=== PATIENT | male | born 1955 | race Caucasian/White ===

== ENCOUNTER 2019-08-30 14:00 | Inpatient (IN) | payer OTHER, SELFPAY ==
[2019-08-30] VITALS (9 sets, daily range): BP systolic 103–162; BP diastolic 53–105; PULSE 80–97; RESP 13–22; TEMP 36.6–36.9; O2SAT 95–100; BMI 22.9; BMI 19.7
--- NOTE | 2019-08-30 14:15 | DI.RAD.S_ITS ---
PROCEDURE: XR CHEST 1V INDICATIONS: chest pain TECHNIQUE: One view of the chest was acquired. COMPARISON: [facility], CR, XR CHEST 1 VIEW, 07/22/2018, 8:15. [facility], CR, CHEST 1 VIEW, 07/26/2009, 12:05. FINDINGS: Surgical changes and devices: None. Lungs and pleura: Lungs are clear. No pleural effusions or pneumothorax. Mediastinum: Mediastinal contours appear normal. Heart size is normal. Bones and chest wall: No suspicious bony lesions. Overlying soft tissues appear unremarkable. IMPRESSION: 1. No acute cardiopulmonary disease. Dictated by: Hugo Morocho M.D. on 08/30/2019 at 13:56 Approved by: Hugo Morocho M.D. on 08/30/2019 at 13:57
--- NOTE | 2019-08-30 14:17 | ED.GENADULT ---
HPI - General Adult General Chief complaint: Diabetic Problem Stated complaint: High glucose Time Seen by Provider: 08/30/19 14:16 History of Present Illness HPI narrative: 64-year-old noncompliant type 2 diabetic who lives with his brother presents with at least 3 days of vomiting diarrhea, fevers, poor oral intake, increasing confusion over the last 24 hours and global weakness today. Most of the history is obtained from the brothers is the patient is significantly confused and not fully participating in discussion or exam. Is reportedly supposed to be on insulin but has not had any insulin in the house for a number of months. It is unclear that he is taking any of his medications are exactly what those medications are. Brother's report that he has not had a stroke or cardiovascular event. No and else in the family is having issues with vomiting or diarrhea at this time. He has a history of chronic abdominal pain apparently is being worked up for mesenteric ischemia Rather is reports significant weight loss, and a 20 lb range, over the last weeks. Related Data Allergies Allergy/AdvReac Type Severity Reaction Status Date / Time carrot Allergy Severe ANAPHYLAXIS Verified 08/30/19 14:15 Review of Systems Review of Systems ROS Unobtainable: All systems reviewed & are unremarkable except as noted in HPI and below Patient History Surgical History Status post endoscopic retrograde cholangiopancreatography Family History Brother Heart disease Father Heart disease Mother Diabetes mellitus Social History Smoking Status: Current every day smoker Exam Narrative Exam Narrative: General: Frail, cachectic, confused and acutely ill-appearing gentleman in acute distress. unableble to give a complete and coherent history. HEENT: Very dry mucous membranes, normal sclera with reactive pupils, Neck: No JVD, supple Respiratory: Lungs are clear to auscultation, no wheezing no rales no rhonchi. Full and symmetrical air movemen. Is protecting his airway adequately at this time Cardiac: Tachycardia with regular rhythm, no murmurs no bruits Abdomen: Scaphoid with severe abdominal pain to minimal palpation. Pain appears to be diffuse with developing rebound. No flank pain Skin: Warm and flushed, no rashes. No obvious breakdown or signs of cellulitis Neurologic: Globally weak, confused to person time and place, no obvious asymmetries or abnormalities Extremities: No trauma, decreased perfusion with significant lower extremity nail dystrophy Psych: Confused, tries to respond to questions and is capable of moaning only Initial Vital Signs Initial Vital Signs: Vital Signs Temperature 98.5 F 08/30/19 14:02 Pulse Rate 97 H 08/30/19 14:02 Respiratory Rate 17 08/30/19 14:02 Blood Pressure 152/78 H 08/30/19 14:02 Pulse Oximetry 97 08/30/19 14:02 Course Course Course Narrative: Acutely ill type 2 diabetic poor control nausea vomiting diarrhea for at least 3 days severe abdominal pain clear dehydration low-grade fever altered mental status. Concern for his DKA as well as developing sepsis. He has had chronic severe abdominal pain DKA is certainly associated with abdominal pain however with the recent diarrhea and his presumed risk for mesenteric ischemia I am concerned about his bowel. Pending renal function will anticipate CT abdomen pelvis with contrast. Will begin fluid hydration blood work and additional studies. Orders Ordered: ED Orders 08/30/19 13:45 Complete Blood Count AUTO DIFF Stat Comprehensive Metabolic Panel Stat Lipase Stat Partial Thromboplastin Time Stat Prothrombin Time INR Stat Troponin & CK Cardiac Panel Stat 08/30/19 14:15 XR chest 1V Stat EKG-12 Lead Stat 08/30/19 14:22 Ketones (Beta-Hydroxybutyrate) Stat Procalcitonin Stat 08/30/19 14:38 Venous Blood Gas Stat 08/30/19 15:02 Blood Culture Stat Lactate (Lactic Acid) Stat 08/30/19 15:04 Urine Microscopic Stat 08/30/19 15:11 Arterial Blood Gas Stat 08/30/19 15:40 GI Panel (Film Array) Stat Sodium Chloride (Normal Saline 0.9%) 2,000 mls @ 1,000 mls/hr IV BOLUS ONE Stop: 08/30/19 16:54 Last Infusion: 08/30/19 15:27 Dose: 0 mls/hr Documented by: Admin: 08/30/19 14:56 Dose: 1,000 mls/hr Documented by: MEISENB INSULIN DRIP PREMIX (Myxredlin Drip Premix) 100 unit in 100 mls @ 6 mls/hr IV TITRATE CONRAD; Protocol Last Admin: 08/30/19 15:50 Dose: 6 mls/hr Documented by: Sodium Chloride (Normal Saline 0.9%) 1,000 mls @ 500 mls/hr IV CONT CONRAD Last Admin: 08/30/19 15:34 Dose: 500 mls/hr Documented by: DOMINGOSENSujit Discontinued Medications Sodium Chloride (Normal Saline 0.9%) 500 mls @ 2,000 mls/hr IV BOLUS ONE Stop: 08/30/19 14:48 Last Admin: 08/30/19 14:55 Dose: Not Given Documented by: YRIS Reevaluation(s) Reevaluation #1: Labs reviewed. Patient has a blood glucose of 1195 ABG of 7.37 with a CO2 of 48 and O2 of 81 and a bicarb of 28. Positive serum ketones. Findings are milk most consistent with DKA with significant hyperglycemia and delirium associated with significant dehydration. At this point he is not evidencing any renal failure. Will hold off on an abdominal CT at this time and assume that much of his abdominal pain is related to his DKA. If he continues to have severe abdominal pain or develops signs of abdominal infection will defer imaging decision-making to the hospitalist. He has gotten 2 L of fluid will continue at 200 cc an hour in begin an insulin drip with anticipation of admission to the ICU for management of his DKA with acute delirium Time: 15:24 Reevaluation #2: Care is reviewed with Dr. Nathan. She will be the admitting physician. Shared concerns with CT scan she will further evaluate and decide if she would like to have this ordered or not. Patient's brothers are updated. Questions are answered Time: 15:52 Vital Signs Vital signs: Vital Signs - 8 hr 08/30/19 14:02 08/30/19 14:44 08/30/19 15:31 Temperature 98.5 F Pulse Rate 97 H 93 H 92 H Respiratory Rate 17 16 14 Blood Pressure 152/78 H Blood Pressure [Right Arm] 139/72 151/71 H Pulse Oximetry 97 96 95 Medical Decision Making Medical Records Medical records reviewed: Yes I reviewed the patient's medical records. Lab Data Lab results reviewed: Yes I reviewed the patient's lab results. Result diagrams: 08/30/19 13:45 08/30/19 13:45 Labs: Lab Results 12/08/30/19 08/30/19 Range/Units 13:45 13:45 13:45 WBC 8.1 (4.5-11.0) X10^3/uL RBC 5.12 (4.5-5.9) X10^6/uL Hgb 17.8 H (13.5-17.5) g/dL Hct 53.5 H (41-53) % MCV 104.6 H (80-100) fL MCH 34.9 H (26-34) PG MCHC 33.4 (30-36) % RDW 14.0 (11.6-14.8) % Plt Count 197 (150-400) X10^3/uL Neut % (Auto) 80.8 H (50-75) % Lymph % (Auto) 12.1 L (25-40) % [place] % (Auto) 7.0 (3-14) % Eos % (Auto) 0.0 L (2-4) % Baso % (Auto) 0.1 (0-2) % Neut # (Auto) 6500 (7517-0828) /uL Lymph # (Auto) 1000 L (1536-8256) /uL [place] # (Auto) 600 (0-900) /uL Eos # (Auto) 0 (0-450) /uL Baso # (Auto) 0 (0-100) /uL PT 10.8 (10.1-12.7) SECONDS INR 0.9 (0.9-1.3) APTT 25 L (26.4-36.2) SECONDS ABG pH (7.35-7.45) ABG pCO2 (35-45) mmHg ABG pO2 (80-100) mmHg ABG HCO3 (22-26) mmol/L ABG Total CO2 (21-31) mmol/L ABG O2 Saturation (95-100) % ABG Base Excess (-2-2) mmol/L FiO2 Sodium 146 H (137-145) mmol/L Potassium 5.1 (3.4-5.1) mmol/L Chloride 103 (98-107) mmol/L Carbon Dioxide 28 (22-32) mmol/L BUN 53 H (9-20) mg/dL Creatinine 0.90 (0.66-1.25) mg/dL Estimated GFR > 60.0 (>60) mL/min BUN/Creatinine Ratio 58.9 H (6-22) Glucose 1195 H* (80-110) mg/dL Lactate (0.7-2.1) mmol/L Calcium 10.5 H (8.4-10.2) mg/dL Total Bilirubin 0.7 (0.2-1.3) mg/dL AST 20 (17-59) IU/L ALT 21 (<50) IU/L Alkaline Phosphatase 159 H (38-126) U/L Total Creatine Kinase 55 (55-170) U/L CK-MB (CK-2) TNP CK-MB (CK-2) Rel Index TNP Troponin I < 0.012 (0.01-0.034) ng/mL Total Protein 8.1 (6.3-8.2) g/dL Albumin 4.7 (3.5-5.0) g/dL Globulin 3.4 (1.7-4.1) g/dL Albumin/Globulin Ratio 1.4 (1.0-2.8) Lipase 128 (23-300) U/L Procalcitonin (<0.5) ng/mL Ketones (<0.27) mmol/L 08/30/19 08/30/19 08/30/19 Range/Units 14:22 14:22 15:02 WBC (4.5-11.0) X10^3/uL RBC (4.5-5.9) X10^6/uL Hgb (13.5-17.5) g/dL Hct (41-53) % MCV (80-100) fL MCH (26-34) PG MCHC (30-36) % RDW (11.6-14.8) % Plt Count (150-400) X10^3/uL Neut % (Auto) (50-75) % Lymph % (Auto) (25-40) % [place] % (Auto) (3-14) % Eos % (Auto) (2-4) % Baso % (Auto) (0-2) % Neut # (Auto) (4671-4248) /uL Lymph # (Auto) (0118-0044) /uL [place] # (Auto) (0-900) /uL Eos # (Auto) (0-450) /uL Baso # (Auto) (0-100) /uL PT (10.1-12.7) SECONDS INR (0.9-1.3) APTT (26.4-36.2) SECONDS ABG pH (7.35-7.45) ABG pCO2 (35-45) mmHg ABG pO2 (80-100) mmHg ABG HCO3 (22-26) mmol/L ABG Total CO2 (21-31) mmol/L ABG O2 Saturation (95-100) % ABG Base Excess (-2-2) mmol/L FiO2 Sodium (137-145) mmol/L Potassium (3.4-5.1) mmol/L Chloride (98-107) mmol/L Carbon Dioxide (22-32) mmol/L BUN (9-20) mg/dL Creatinine (0.66-1.25) mg/dL Estimated GFR (>60) mL/min BUN/Creatinine Ratio (6-22) Glucose (80-110) mg/dL Lactate 1.7 (0.7-2.1) mmol/L Calcium (8.4-10.2) mg/dL Total Bilirubin (0.2-1.3) mg/dL AST (17-59) IU/L ALT (<50) IU/L Alkaline Phosphatase (38-126) U/L Total Creatine Kinase (55-170) U/L CK-MB (CK-2) CK-MB (CK-2) Rel Index Troponin I (0.01-0.034) ng/mL Total Protein (6.3-8.2) g/dL Albumin (3.5-5.0) g/dL Globulin (1.7-4.1) g/dL Albumin/Globulin Ratio (1.0-2.8) Lipase (23-300) U/L Procalcitonin 0.06 (<0.5) ng/mL Ketones 1.43 H (<0.27) mmol/L /14/19 Range/Units 15:11 WBC (4.5-11.0) X10^3/uL RBC (4.5-5.9) X10^6/uL Hgb (13.5-17.5) g/dL Hct (41-53) % MCV (80-100) fL MCH (26-34) PG MCHC (30-36) % RDW (11.6-14.8) % Plt Count (150-400) X10^3/uL Neut % (Auto) (50-75) % Lymph % (Auto) (25-40) % [place] % (Auto) (3-14) % Eos % (Auto) (2-4) % Baso % (Auto) (0-2) % Neut # (Auto) (0663-1309) /uL Lymph # (Auto) (9391-1622) /uL [place] # (Auto) (0-900) /uL Eos # (Auto) (0-450) /uL Baso # (Auto) (0-100) /uL PT (10.1-12.7) SECONDS INR (0.9-1.3) APTT (26.4-36.2) SECONDS ABG pH 7.37 (7.35-7.45) ABG pCO2 48.1 H (35-45) mmHg ABG pO2 81 (80-100) mmHg ABG HCO3 28 H (22-26) mmol/L ABG Total CO2 29 (21-31) mmol/L ABG O2 Saturation 95 (95-100) % ABG Base Excess 3.0 H (-2-2) mmol/L FiO2 0.21 Sodium (137-145) mmol/L Potassium (3.4-5.1) mmol/L Chloride (98-107) mmol/L Carbon Dioxide (22-32) mmol/L BUN (9-20) mg/dL Creatinine (0.66-1.25) mg/dL Estimated GFR (>60) mL/min BUN/Creatinine Ratio (6-22) Glucose (80-110) mg/dL Lactate (0.7-2.1) mmol/L Calcium (8.4-10.2) mg/dL Total Bilirubin (0.2-1.3) mg/dL AST (17-59) IU/L ALT (<50) IU/L Alkaline Phosphatase (38-126) U/L Total Creatine Kinase (55-170) U/L CK-MB (CK-2) CK-MB (CK-2) Rel Index Troponin I (0.01-0.034) ng/mL Total Protein (6.3-8.2) g/dL Albumin (3.5-5.0) g/dL Globulin (1.7-4.1) g/dL Albumin/Globulin Ratio (1.0-2.8) Lipase (23-300) U/L Procalcitonin (<0.5) ng/mL Ketones (<0.27) mmol/L Point of Care Testing Glucose POC 500 Urine Dip Bedside Urine Glucose 1000 mg/dl Bedside Urine Bilirubin - Negative Bedside Urine Ketone +/- 5 Urine Specific [place] 1.010 Bedside Urine Occult Blood - Negative Bedside Urine pH 6.0 Bedside Urine Protein - Negative Bedside Urine Urobilinogen - Negative Bedside Urine Nitrite - Negative Bedside Urine Leukocytes - Negative Esterase Point of care testing: Point of Care Testing Glucose POC 500 Urine Dip Bedside Urine Glucose 1000 mg/dl Bedside Urine Bilirubin - Negative Bedside Urine Ketone +/- 5 Urine Specific [place] 1.010 Bedside Urine Occult Blood - Negative Bedside Urine pH 6.0 Bedside Urine Protein - Negative Bedside Urine Urobilinogen - Negative Bedside Urine Nitrite - Negative Bedside Urine Leukocytes - Negative Esterase Imaging Data Chest x-ray: Radiologist's impression: IMPRESSION: 1. No acute cardiopulmonary disease. Dictated by: Hugo Morocho M.D. 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
[2019-08-30 14:27] LABS: INR 0.9 (0.9-1.3); Prothrombin Time 10.8 SECONDS (10.1-12.7)
--- NOTE | 2019-08-30 14:28 | PC.NURSE ---
2016, follows command, moving all ext well, c/o thirsty, and with generalized ache with movement. skin warm dry.
[2019-08-30 14:30] LABS: Add Manual Diff / Slide Review NO; Basophils Absolute Auto 0 /uL (0-100); Basophils Percent Auto 0.1 % (0-2); Eosinophils Absolute Auto 0 /uL (0-450); Hematocrit 53.5 % (41-53); Hemoglobin 17.8 g/dL (13.5-17.5); Lymphocytes Absolute Auto 1000 /uL (1100-4500); Lymphocytes Percent Auto 12.1 % (25-40); Mean Corpuscular HGB Conc 33.4 % (30-36); Mean Corpuscular Hemoglobin 34.9 PG (26-34); Mean Corpuscular Volume 104.6 fL (80-100); Monocytes Absolute Auto 600 /uL (0-900); Neutrophils Absolute Auto 6500 /uL (1500-7000); Neutrophils Percent Auto 80.8 % (50-75); PTT Partial Thromboplastin Tim 25 SECONDS (26.4-36.2); Platelet Count 197 X10^3/uL (150-400); Red Blood Cell Count 5.12 X10^6/uL (4.5-5.9); White Blood Cell Count 8.1 X10^3/uL (4.5-11.0)
[2019-08-30 14:34] LABS: Alanine Aminotransferase 21 IU/L (<50); Albumin 4.7 g/dL (3.5-5.0); Albumin Globulin Ratio 1.4 (1.0-2.8); Alkaline Phosphatase 159 U/L (38-126); Aspartate Aminotransferase 20 IU/L (17-59); BUN Creatinine Ratio 58.9 (6-22); Bilirubin Total 0.7 mg/dL (0.2-1.3); Blood Urea Nitrogen 53 mg/dL (9-20); Calcium 10.5 mg/dL (8.4-10.2); Carbon Dioxide 28 mmol/L (22-32); Chloride 103 mmol/L (98-107); Creatine Kinase 55 U/L (55-170); Estimated Glomerular Filt Rate > 60.0 mL/min (>60); Globulin 3.4 g/dL (1.7-4.1); HEMOLYSIS 34 (0-50); Lipase 128 U/L (23-300); Potassium 5.1 mmol/L (3.4-5.1); Sodium 146 mmol/L (137-145); Total Protein 8.1 g/dL (6.3-8.2)
[2019-08-30 14:45] LABS: Troponin I < 0.012 ng/mL (0.01-0.034)
[2019-08-30 14:48] LABS: Glucose 1195 mg/dL (80-110)
[2019-08-30] MEDS: SODIUM CHLORIDE 0.9% 2,000 ML 1000 ML IV (14:56)
[2019-08-30 15:15] LABS: Ketones (Beta-Hydroxybutyrate) 1.43 mmol/L (<0.27); Procalcitonin 0.06 ng/mL (<0.5)
[2019-08-30 15:25] LABS: Fractionated Inspired Oxygen 0.21; HCO3 ABG 28 mmol/L (22-26); Oxygen Saturation ABG 95 % (95-100); PCO2 ABG 48.1 mmHg (35-45); PO2 ABG 81 mmHg (80-100); TCO2 ABG 29 mmol/L (21-31); pH ABG 7.37 (7.35-7.45)
[2019-08-30 15:26] LABS: Lactate (Lactic Acid) 1.7 mmol/L (0.7-2.1)
[2019-08-30] MEDS: SODIUM CHLORIDE 0.9% 1,000 ML 500 ML IV (15:34)
[2019-08-30] MEDS: INSULIN DRIP PREMIX 100 UNIT/100 ML PLAST..BAG 6 UNIT IV (15:50)
[2019-08-30 16:04] LABS: Bacteria Urine None Seen; RBC Urine None Seen (0-5/HPF); WBC Urine None Seen (0-5/HPF)
--- NOTE | 2019-08-30 16:15 | PC.NURSE ---
cell phone with plugs, ortiz jacket, glass,watch,pair of slipper, red short,whirt and pants.
[2019-08-30 16:27] LABS: Culture Indicated Urine Cult Not Indicated
--- NOTE | 2019-08-30 17:44 | P.HP_ITS ---
History of Present Illness History of Present Illness Date Patient Seen: 08/30/19 Chief complaint: High glucose Narrative: The patient is a 64-year-old man with a history of type 2 diabetes, chronic abdominal pain, diabetic polyneuropathy who was brought into the hospital for nausea vomiting diarrhea and frequent falls. The patient is unable to provide any history. History is obtained from the emergency department and from the patient's daughter. Apparently he is a type 2 diabetic but has recently been prescribed insulin. He does not take his insulin and has chronically elevated blood sugars. The patient spoke to his daughter 2 days ago and was not quite feeling well. Brother states that today he was confused. He attempted to walk multiple times and each time he tried to walk he would fall down. The patient had reported diarrhea. It's unclear how long he has had diarrhea. He also has chronic abdominal pain. According to the daughter he is on carbamazepine and gabapentin for his abdominal pain. It's felt that this is likely related to prior infection with shingles. There is also report that the patient has been worked up for mesenteric ischemia. According to the daughter the patient has lost 60 lb over the past 2 years. He is unable to give us any history. He is slow to answer or respond to questions. He states over and over that his mouth is dry. He denies shortness of breath, he denies any pain in his chest, he does report diarrhea, he reports abdominal pain which has been present for ?a long time he denies any dysuria hematuria or pyuria. He has had no fever chills. Further review of systems is essentially unobtainable patient was evaluated in the emergency room and found to have a blood sugar of over 1000. Patient is admitted to the hospital for hyper osmolar state. Patient History Medical History (Updated 08/30/19 @ 17:47 by Oksana Nathan MD) Diabetes mellitus with ketoacidosis (Acute) Surgical History Status post endoscopic retrograde cholangiopancreatography Family & Social History Family History Brother Heart disease Father Heart disease Mother Diabetes mellitus Social History: household members family Prior Living Arrangements House Safety & Behavioral: Feels Safe in Current Yes Environment Been Physically Hurt or No Threatened By a Person Suicidal Ideation Description None Tobacco & Substance use: Smoking Status Current every day smoker Smoking packs per day 1 alcohol intake never Substance Use Type does not use Meds Home Medications and Allergies Home Medications Medication Instructions Recorded Confirmed Type carbamazepine 300 mg PO BID 08/30/19 08/30/19 History gabapentin 600 mg PO TID 08/30/19 08/30/19 History hydrocodone-acetaminophen 08/30/19 History lidocaine 08/30/19 History swabwspe-poa-WZ-lycopen-lutein 1 tab PO DAILY 08/30/19 08/30/19 History [Centrum Silver] naproxen sodium [Aleve] 400 mg PO Q4-6H PRN 08/30/19 08/30/19 History pantoprazole 40 mg PO DAILY 08/30/19 08/30/19 History Allergies Allergy/AdvReac Type Severity Reaction Status Date / Time carrot Allergy Severe ANAPHYLAXIS Verified 08/30/19 14:15 Review of Systems Review of Systems ROS Unobtainable: All systems reviewed & are unremarkable except as noted in HPI and below Exam Vital Signs (past 8 hours): - 08/30/19 14:02 08/30/19 14:44 08/30/19 15:31 Temperature 98.5 F Pulse Rate 97 H 93 H 92 H Respiratory Rate 17 16 14 Blood Pressure 152/78 H Blood Pressure [Right Arm] 139/72 151/71 H Pulse Oximetry 97 96 95 08/30/19 16:30 Temperature 98.1 F Pulse Rate 93 H Respiratory Rate 13 Blood Pressure 162/77 H Blood Pressure [Right Arm] Pulse Oximetry 95 Oxygen Delivery Method Room Air Oxygen Flow Rate 0 Narrative Exam Narrative: Ill-appearing male lying in bed HEENT: Bitemporal wasting, oropharynx reveals very dry mucous membranes, neck is supple, there is no adenopathy or thyromegaly, sclerae are anicteric Lungs: Clear to auscultation Cardiac exam: Tachycardic regular rate and rhythm normal S1-S2 Abdomen: Scaphoid, soft, diffusely tender, no palpable masses, no rebound tenderness, no board-like rigidity, no hepatosplenomegaly noted Extremities: No edema right knee with a raised abrasion over the kneecap, no edema Neuro exam patient is awake, he does answer questions at times appropriately, he is able to move all extremities, his strength is symmetric and equal in the upper and lower extremities sensation is grossly intact, reflexes are equal, gait is not assessed Psychiatric exam patient feels to be withdrawn, depressed, slowly response, he has no hallucinations, no delusions Objective Labs Result Diagrams: 08/30/19 13:45 08/30/19 13:45 Labs: Laboratory Results - last 24 hr 08/30/19 08/30/19 08/30/19 13:45 13:45 13:45 WBC 8.1 RBC 5.12 Hgb 17.8 H Hct 53.5 H MCV 104.6 H MCH 34.9 H MCHC 33.4 RDW 14.0 Plt Count 197 Neut % (Auto) 80.8 H Lymph % (Auto) 12.1 L [place] % (Auto) 7.0 Eos % (Auto) 0.0 L Baso % (Auto) 0.1 Neut # (Auto) 6500 Lymph # (Auto) 1000 L [place] # (Auto) 600 Eos # (Auto) 0 Baso # (Auto) 0 PT 10.8 INR 0.9 APTT 25 L ABG pH ABG pCO2 ABG pO2 ABG HCO3 ABG Total CO2 ABG O2 Saturation ABG Base Excess FiO2 Sodium 146 H Potassium 5.1 Chloride 103 Carbon Dioxide 28 BUN 53 H Creatinine 0.90 Estimated GFR > 60.0 BUN/Creatinine Ratio 58.9 H Glucose 1195 H* Lactate Calcium 10.5 H Total Bilirubin 0.7 AST 20 ALT 21 Alkaline Phosphatase 159 H Total Creatine Kinase 55 CK-MB (CK-2) TNP CK-MB (CK-2) Rel Index TNP Troponin I < 0.012 Total Protein 8.1 Albumin 4.7 Globulin 3.4 Albumin/Globulin Ratio 1.4 Lipase 128 Procalcitonin Urine RBC Urine WBC Urine Bacteria Ur Culture Indicated? Ketones 08/30/19 08/30/19 08/30/19 14:22 14:22 15:02 WBC RBC Hgb Hct MCV MCH MCHC RDW Plt Count Neut % (Auto) Lymph % (Auto) [place] % (Auto) Eos % (Auto) Baso % (Auto) Neut # (Auto) Lymph # (Auto) [place] # (Auto) Eos # (Auto) Baso # (Auto) PT INR APTT ABG pH ABG pCO2 ABG pO2 ABG HCO3 ABG Total CO2 ABG O2 Saturation ABG Base Excess FiO2 Sodium Potassium Chloride Carbon Dioxide BUN Creatinine Estimated GFR BUN/Creatinine Ratio Glucose Lactate 1.7 Calcium Total Bilirubin AST ALT Alkaline Phosphatase Total Creatine Kinase CK-MB (CK-2) CK-MB (CK-2) Rel Index Troponin I Total Protein Albumin Globulin Albumin/Globulin Ratio Lipase Procalcitonin 0.06 Urine RBC Urine WBC Urine Bacteria Ur Culture Indicated? Ketones 1.43 H 08/30/19 08/30/19 15:11 16:02 WBC RBC Hgb Hct MCV MCH MCHC RDW Plt Count Neut % (Auto) Lymph % (Auto) [place] % (Auto) Eos % (Auto) Baso % (Auto) Neut # (Auto) Lymph # (Auto) [place] # (Auto) Eos # (Auto) Baso # (Auto) PT INR APTT ABG pH 7.37 ABG pCO2 48.1 H ABG pO2 81 ABG HCO3 28 H ABG Total CO2 29 ABG O2 Saturation 95 ABG Base Excess 3.0 H FiO2 0.21 Sodium Potassium Chloride Carbon Dioxide BUN Creatinine Estimated GFR BUN/Creatinine Ratio Glucose Lactate Calcium Total Bilirubin AST ALT Alkaline Phosphatase Total Creatine Kinase CK-MB (CK-2) CK-MB (CK-2) Rel Index Troponin I Total Protein Albumin Globulin Albumin/Globulin Ratio Lipase Procalcitonin Urine RBC None seen Urine WBC None seen Urine Bacteria None seen Ur Culture Indicated? Cult not indicated Ketones Assessment & Plan Assessment & Plan narrative: 1. 64-year-old male admitted to the hospital with diabetic hyperosmolar hyperglycemic state. Patient is not ketotic. He has no evidence of DKA. Patient is a type 2 diabetic who has not been taking insulin or any treatment for some time. He has severe dehydration. He has severe hyperglycemia. It is unclear whether the underlying etiology was his diarrhea or another clinical condition or just noncompliance with his treatment. At this time will proceed as follows -patient will continue on IV fluids -patient to continue on IV insulin -will obtain medical records and resume usual home insulin dosing once blood sugars have improved. -will continue to look for etiologies and precipitants of his hyperosmolar state -very concerning that the patient has been severely noncompliant with medic ations. It's unclear whether it is safe for him to return home independently. Will ask social work/case management to evaluate. Suspect the patient will need placement at a facility as he is non compliant with his medical regimen resulting in nearly catastrophic illness. -will obtain a glycohemoglobin, will obtain a fasting lipid profile, will continue IV hydration. 2. Chronic abdominal pain, question mesenteric ischemia which I doubt versus is diabetic neuropathy versus other. Once the patient's hyperglycemia has improved will resume his gabapentin and carbamazepine 3. Hypertension question new diagnosis, start the patient on an ZAN-inhibitor given his diabetes. 4. Severe dehydration, related to his hyperosmolar state, will continue aggressive IV hydration and follow labs and electrolytes closely Patient will be placed on DVT prophylaxis. He reports he is a full code. Will note that his record accordingly. Quality VTE Deep Vein Thrombosis/Pulmonary Embolism Present on Admission: No
[2019-08-30 18:15] LABS: Blood Urea Nitrogen 45 mg/dL (9-20); Calcium 9.7 mg/dL (8.4-10.2); Carbon Dioxide 26 mmol/L (22-32); Chloride 118 mmol/L (98-107); Estimated Glomerular Filt Rate > 60.0 mL/min (>60); Potassium 4.2 mmol/L (3.4-5.1); Sodium 157 mmol/L (137-145)
[2019-08-30 18:16] LABS: HEMOLYSIS 21 (0-50)
[2019-08-30 18:17] LABS: Glucose 656 mg/dL (80-110)
[2019-08-30 18:18] LABS: Hemoglobin A1C% w Est Avg Glu 12.4 % (4.0-6.0)
[2019-08-30] MEDS: SODIUM CHLORIDE 0.45% 1,000 ML 150 ML IV (18:51)
--- NOTE | 2019-08-30 19:07 | PC.NURSE ---
Addendum entered by Carmela Johnson R.N. 08/30/19 22:17: 2200 - BG 178, Hospitalist aware. Verbal order to titrate insulin gtt down to 4 units/hr. Pt's prior report of nausea following reposition and bed nagel use resolved with Zofran. Addendum entered by Carmela Johnson R.N. 08/30/19 20:13: 2000 - Pt near goal with BG, 272, a decrease of 89 from prior measure. Insulin gtt titrated to 5 units per hour. 0.45 NS infusing at 150cc/hr. Pt continues to be drowsy, c/o thirst and resistive to care. Bed alarm on. Original Note: 1900 - Pt repositioned. Void per urinal. Stool per bedpan, sample sent. Brief in place. Continues to be resistive to care. BG 361. SCD's in place. 1625 -Pt to room from ER. Transfer to bed via sliderboard. Resistive to care, assessment and repositioning. Pt is a poor historian. Family assist with some medical history. Pt with medications in his belongings, noted and sent home with family. Pt declines any valuables to be placed in safe. Oriented to room and routine. Bed alarm on.
[2019-08-30 19:54] LABS: Cholesterol 287 mg/dL (140-199); HDL Cholesterol 40 mg/dL (40-60)
[2019-08-30 20:23] LABS: Triglycerides 1828 mg/dL (35-150)
[2019-08-30 20:25] LABS: Adenovirus F 40/41 Not Detected (Not Detect); Astrovirus Not Detected (Not Detect); Campylobacter Not Detected (Not Detect); Clostridium difficile toxin AB Not Detected (Not Detect); Cryptosporidium Not Detected (Not Detect); Cyclospora cayetanensis Not Detected (Not Detect); Entamoeba histolytica Not Detected (Not Detect); Enteroaggregative E.coli Not Detected (Not Detect); Enteropathogenic E.coli Not Detected (Not Detect); Enterotoxigenic E.coli It/st Not Detected (Not Detect); Giardia lamblia Not Detected (Not Detect); Norovirus GI/GII Not Detected (Not Detect); Plesiomonsa shigelloides Not Detected (Not Detect); Rotavirus A Not Detected (Not Detect); Salmonella Not Detected (Not Detect); Sapovirus Not Detected (Not Detect); Shiga-like toxin-prod E.coli Not Detected (Not Detect); Shigella/Enteroinvasive E.coli Not Detected (Not Detect); Vibrio Not Detected (Not Detect); Vibrio cholerae Not Detected (Not Detect); Yersinia enterocolitica Not Detected (Not Detect)
[2019-08-30] MEDS: DEXTROSE 5%-0.45% NS 1,000 ML 150 ML IV (21:06)
[2019-08-30] MEDS: ONDANSETRON 4 MG/2 ML INJ IV (21:17)
[2019-08-30] MEDS: ATORVASTATIN 20 MG TABLET 40 MG PO (22:01)
[2019-08-30 23:29] LABS: BUN Creatinine Ratio 53.3 (6-22); Blood Urea Nitrogen 32 mg/dL (9-20); Carbon Dioxide 28 mmol/L (22-32); Chloride 117 mmol/L (98-107); Estimated Glomerular Filt Rate > 60.0 mL/min (>60); Glucose 167 mg/dL (80-110); HEMOLYSIS < 15 (0-50); Magnesium 2.8 mg/dL (1.6-2.3); Potassium 3.3 mmol/L (3.4-5.1); Sodium 149 mmol/L (137-145)
[2019-08-31] VITALS (11 sets, daily range): BP systolic 92–179; BP diastolic 45–86; PULSE 69–88; RESP 15–18; TEMP 36.7–37.3; O2SAT 93–98
[2019-08-31] MEDS: POTASSIUM CHLORIDE 20 MEQ in SODIUM CHLORIDE 0.9% 250 ML 130 ML IV (00:29)
[2019-08-31] MEDS: INSULIN ASPART 100 UNIT/ML INSULN PEN SUBCUT ×4 (02:15→20:59)
[2019-08-31 05:21] LABS: Add Manual Diff / Slide Review NO; Basophils Absolute Auto 0 /uL (0-100); Basophils Percent Auto 0.4 % (0-2); Eosinophils Absolute Auto 100 /uL (0-450); Eosinophils Percent Auto 1.1 % (2-4); Hematocrit 39.8 % (41-53); Hemoglobin 13.7 g/dL (13.5-17.5); Lymphocytes Absolute Auto 1800 /uL (1100-4500); Lymphocytes Percent Auto 21.3 % (25-40); Mean Corpuscular HGB Conc 34.5 % (30-36); Mean Corpuscular Hemoglobin 34.2 PG (26-34); Mean Corpuscular Volume 99.2 fL (80-100); Monocytes Absolute Auto 700 /uL (0-900); Monocytes Percent Auto 8.2 % (3-14); Neutrophils Absolute Auto 5900 /uL (1500-7000); Platelet Count 114 X10^3/uL (150-400); Red Blood Cell Count 4.01 X10^6/uL (4.5-5.9); White Blood Cell Count 8.6 X10^3/uL (4.5-11.0)
[2019-08-31 05:28] LABS: BUN Creatinine Ratio 46.7 (6-22); Blood Urea Nitrogen 28 mg/dL (9-20); Calcium 8.3 mg/dL (8.4-10.2); Carbon Dioxide 26 mmol/L (22-32); Chloride 117 mmol/L (98-107); Estimated Glomerular Filt Rate > 60.0 mL/min (>60); Glucose 364 mg/dL (80-110); HEMOLYSIS 18 (0-50); Potassium 3.9 mmol/L (3.4-5.1); Sodium 148 mmol/L (137-145)
--- NOTE | 2019-08-31 06:13 | PC.NURSE ---
Pt transferred from ICU at 0600; Pt had a large leroy-like brown stool on admission. Alert and oriented x3, however, it takes him a minute to figure out his answers. Clear Liquid diet, asking for water. B/L great toe nails blacked; calloused right knee
[2019-08-31] MEDS: METOCLOPRAMIDE 10 MG/2 ML INJ IV (08:11)
[2019-08-31] MEDS: FENOFIBRATE 145 MG TABLET PO (09:40)
[2019-08-31] MEDS: ENOXAPARIN 40 MG/0.4 ML SYRINGE SUBCUT (09:40)
[2019-08-31] MEDS: LISINOPRIL 10 MG TABLET PO (09:41)
[2019-08-31] MEDS: FISH OIL 1,000 MG CAPSULE 1000 MG PO (09:41)
[2019-08-31] MEDS: ACETAMINOPHEN 325 MG TABLET 650 MG PO ×2 (09:46→16:07)
[2019-08-31] MEDS: INSULIN GLARGINE 100 UNIT/ML 3ML PEN 15 UNIT SUBCUT (12:09)
--- NOTE | 2019-08-31 15:03 | P.PN_ITS ---
Subjective Subjective Date Patient Seen: 08/31/19 Interval history: The patient is a 64-year-old male who was admitted to the hospital for hyperglycemic hyperosmolar diabetic state yesterday. The patient is normally on 28 units of insulin +500 b.i.d. of metformin. He stop taking his insulin at home. It's unclear whether he was taking the metformin or not. Patient is somewhat withdrawn, mood is depressed, has no tearful episodes. His brothers are in the room and endorse at times the patient has been depressed. We discussed initiation of an antidepressant which he was amenable to do. Patient has been unsteady on his feet for quite some time. He is awaiting PT evaluation to determine if he is safe to return home or will need penitentiary for rehabilitation prior to returning home. Blood sugars remain elevated. He will now be placed on his usual home regimen. Patient has a poor appetite but no specific complaints. Exam Vital Signs (past 8 hours): - 08/31/19 08:27 08/31/19 12:00 Temperature 98.6 F 99.1 F Pulse Rate 88 79 Respiratory Rate 18 18 Blood Pressure 132/86 106/62 Pulse Oximetry 98 97 Oxygen Delivery Method Room Air Oxygen Flow Rate 0 Narrative Exam Narrative: Withdrawn male minimally responsive but in no obvious distress Lungs: Clear to auscultation Cardiac exam: Regular rate and rhythm normal S1-S2 Abdomen: Soft nontender nondistended Extremities: No edema Objective Labs Result Diagrams: 08/31/19 04:40 08/31/19 04:40 Labs: Laboratory Results - last 24 hr 08/30/19 08/30/19 08/30/19 14:22 14:22 15:02 WBC RBC Hgb Hct MCV MCH MCHC RDW Plt Count Neut % (Auto) Lymph % (Auto) Gilchrist % (Auto) Eos % (Auto) Baso % (Auto) Neut # (Auto) Lymph # (Auto) Gilchrist # (Auto) Eos # (Auto) Baso # (Auto) ABG pH ABG pCO2 ABG pO2 ABG HCO3 ABG Total CO2 ABG O2 Saturation ABG Base Excess FiO2 Sodium Potassium Chloride Carbon Dioxide BUN Creatinine Estimated GFR BUN/Creatinine Ratio Glucose Hemoglobin A1c Lactate 1.7 Calcium Magnesium Triglycerides Cholesterol LDL Cholesterol, Calc VLDL Cholesterol HDL Cholesterol Procalcitonin 0.06 Urine RBC Urine WBC Urine Bacteria Ur Culture Indicated? Nasal Screen MRSA (PCR) Stl C. cayetanensis PCR Stool Rotavirus (PCR) Stool Adenovirus (PCR) Stool Astrovirus (PCR) Stool Cryptosporidium PCR Stl E.coli Shiga Tox PCR St Sh/Enteroin Ecoli PCR Stool E coli O157 PCR Stl Enterotoxigenic E PCR Stool EPEC (PCR) Stl E. histolytica PCR Stool Giardia Lamblia PCR Stool Sapovirus (PCR) Stl P. shigelloides PCR St Y.enterocolitica PCR Stool Vibrio (PCR) Stl Vibrio cholerae PCR Stl Enteroaggr Ecoli PCR Stl Norovirus GI/GII PCR Ketones 1.43 H Campylobacter (PCR) C. difficile Tox (PCR) Salmonella (PCR) 08/30/19 08/30/19 08/30/19 15:11 16:02 16:36 WBC RBC Hgb Hct MCV MCH MCHC RDW Plt Count Neut % (Auto) Lymph % (Auto) Gilchrist % (Auto) Eos % (Auto) Baso % (Auto) Neut # (Auto) Lymph # (Auto) Gilchrist # (Auto) Eos # (Auto) Baso # (Auto) ABG pH 7.37 ABG pCO2 48.1 H ABG pO2 81 ABG HCO3 28 H ABG Total CO2 29 ABG O2 Saturation 95 ABG Base Excess 3.0 H FiO2 0.21 Sodium Potassium Chloride Carbon Dioxide BUN Creatinine Estimated GFR BUN/Creatinine Ratio Glucose Hemoglobin A1c Lactate Calcium Magnesium Triglycerides Cholesterol LDL Cholesterol, Calc VLDL Cholesterol HDL Cholesterol Procalcitonin Urine RBC None seen Urine WBC None seen Urine Bacteria None seen Ur Culture Indicated? Cult not indicated Nasal Screen MRSA (PCR) Negative for mrsa Stl C. cayetanensis PCR Stool Rotavirus (PCR) Stool Adenovirus (PCR) Stool Astrovirus (PCR) Stool Cryptosporidium PCR Stl E.coli Shiga Tox PCR St Sh/Enteroin Ecoli PCR Stool E coli O157 PCR Stl Enterotoxigenic E PCR Stool EPEC (PCR) Stl E. histolytica PCR Stool Giardia Lamblia PCR Stool Sapovirus (PCR) Stl P. shigelloides PCR St Y.enterocolitica PCR Stool Vibrio (PCR) Stl Vibrio cholerae PCR Stl Enteroaggr Ecoli PCR Stl Norovirus GI/GII PCR Ketones Campylobacter (PCR) C. difficile Tox (PCR) Salmonella (PCR) 12/14/19 12/14/19 12/14/19 17:21 17:21 17:21 WBC RBC Hgb Hct MCV MCH MCHC RDW Plt Count Neut % (Auto) Lymph % (Auto) Gilchrist % (Auto) Eos % (Auto) Baso % (Auto) Neut # (Auto) Lymph # (Auto) Gilchrist # (Auto) Eos # (Auto) Baso # (Auto) ABG pH ABG pCO2 ABG pO2 ABG HCO3 ABG Total CO2 ABG O2 Saturation ABG Base Excess FiO2 Sodium 157 H D Potassium 4.2 Chloride 118 H Carbon Dioxide 26 BUN 45 H Creatinine 0.90 Estimated GFR > 60.0 BUN/Creatinine Ratio 50.0 H Glucose Cancelled 656 H* Hemoglobin A1c 12.4 H Lactate Calcium 9.7 Magnesium Triglycerides Cholesterol LDL Cholesterol, Calc VLDL Cholesterol HDL Cholesterol Procalcitonin Urine RBC Urine WBC Urine Bacteria Ur Culture Indicated? Nasal Screen MRSA (PCR) Stl C. cayetanensis PCR Stool Rotavirus (PCR) Stool Adenovirus (PCR) Stool Astrovirus (PCR) Stool Cryptosporidium PCR Stl E.coli Shiga Tox PCR St Sh/Enteroin Ecoli PCR Stool E coli O157 PCR Stl Enterotoxigenic E PCR Stool EPEC (PCR) Stl E. histolytica PCR Stool Giardia Lamblia PCR Stool Sapovirus (PCR) Stl P. shigelloides PCR St Y.enterocolitica PCR Stool Vibrio (PCR) Stl Vibrio cholerae PCR Stl Enteroaggr Ecoli PCR Stl Norovirus GI/GII PCR Ketones Campylobacter (PCR) C. difficile Tox (PCR) Salmonella (PCR) 08/30/19 08/30/19 08/30/19 17:21 18:59 23:07 WBC RBC Hgb Hct MCV MCH MCHC RDW Plt Count Neut % (Auto) Lymph % (Auto) Gilchrist % (Auto) Eos % (Auto) Baso % (Auto) Neut # (Auto) Lymph # (Auto) Gilchrist # (Auto) Eos # (Auto) Baso # (Auto) ABG pH ABG pCO2 ABG pO2 ABG HCO3 ABG Total CO2 ABG O2 Saturation ABG Base Excess FiO2 Sodium 149 H Potassium 3.3 L Chloride 117 H Carbon Dioxide 28 BUN 32 H Creatinine 0.60 L Estimated GFR > 60.0 BUN/Creatinine Ratio 53.3 H Glucose 167 H D Hemoglobin A1c Lactate Calcium 9.0 Magnesium 2.8 H Triglycerides 1828 H Cholesterol 287 H LDL Cholesterol, Calc TNP VLDL Cholesterol TNP HDL Cholesterol 40 Procalcitonin Urine RBC Urine WBC Urine Bacteria Ur Culture Indicated? Nasal Screen MRSA (PCR) Stl C. cayetanensis PCR Not detected Stool Rotavirus (PCR) Not detected Stool Adenovirus (PCR) Not detected Stool Astrovirus (PCR) Not detected Stool Cryptosporidium PCR Not detected Stl E.coli Shiga Tox PCR Not detected St Sh/Enteroin Ecoli PCR Not detected Stool E coli O157 PCR Not detected Stl Enterotoxigenic E PCR Not detected Stool EPEC (PCR) Not detected Stl E. histolytica PCR Not detected Stool Giardia Lamblia PCR Not detected Stool Sapovirus (PCR) Not detected Stl P. shigelloides PCR Not detected St Y.enterocolitica PCR Not detected Stool Vibrio (PCR) Not detected Stl Vibrio cholerae PCR Not detected Stl Enteroaggr Ecoli PCR Not detected Stl Norovirus GI/GII PCR Not detected Ketones Campylobacter (PCR) Not detected C. difficile Tox (PCR) Not detected Salmonella (PCR) Not detected 08/31/19 08/31/19 04:40 04:40 WBC 8.6 RBC 4.01 L Hgb 13.7 Hct 39.8 L MCV 99.2 D MCH 34.2 H MCHC 34.5 RDW 14.0 Plt Count 114 L Neut % (Auto) 69.0 Lymph % (Auto) 21.3 L Gilchrist % (Auto) 8.2 Eos % (Auto) 1.1 L Baso % (Auto) 0.4 Neut # (Auto) 5900 Lymph # (Auto) 1800 Gilchrist # (Auto) 700 Eos # (Auto) 100 Baso # (Auto) 0 ABG pH ABG pCO2 ABG pO2 ABG HCO3 ABG Total CO2 ABG O2 Saturation ABG Base Excess FiO2 Sodium 148 H Potassium 3.9 Chloride 117 H Carbon Dioxide 26 BUN 28 H Creatinine 0.60 L Estimated GFR > 60.0 BUN/Creatinine Ratio 46.7 H Glucose 364 H D Hemoglobin A1c Lactate Calcium 8.3 L Magnesium Triglycerides Cholesterol LDL Cholesterol, Calc VLDL Cholesterol HDL Cholesterol Procalcitonin Urine RBC Urine WBC Urine Bacteria Ur Culture Indicated? Nasal Screen MRSA (PCR) Stl C. cayetanensis PCR Stool Rotavirus (PCR) Stool Adenovirus (PCR) Stool Astrovirus (PCR) Stool Cryptosporidium PCR Stl E.coli Shiga Tox PCR St Sh/Enteroin Ecoli PCR Stool E coli O157 PCR Stl Enterotoxigenic E PCR Stool EPEC (PCR) Stl E. histolytica PCR Stool Giardia Lamblia PCR Stool Sapovirus (PCR) Stl P. shigelloides PCR St Y.enterocolitica PCR Stool Vibrio (PCR) Stl Vibrio cholerae PCR Stl Enteroaggr Ecoli PCR Stl Norovirus GI/GII PCR Ketones Campylobacter (PCR) C. difficile Tox (PCR) Salmonella (PCR) Assessment & Plan Assessment & Plan narrative: Impression 1. Hyperosmolar hyperglycemic diabetic state -markedly elevated blood sugars due to noncompliance with medication regimen. Hemoglobin A1c 12.4% -discussed with the patient today who agrees to take medication as prescribed. His usual home regimen is metformin 500 b.i.d., 28 units of Lantus. Patient is a poor appetite here and will be titrated up on insulin depending on his oral intake. 2. Hypernatremia -secondary to volume resuscitation during admission. NS has been dis continued the patient was placed on half-normal saline 3. Hyperlipidemia, hypertriglyceridemia -related to poorly controlled diabetes. However given his triglycerides of 1800 will start him on gemfibrozil anticipate improvement as his glycemic control improved -will discontinue Lipitor given his LDL cholesterol of 70 4. Hypertension, present on admission -continue lisinopril, patient may need lower doses he is now on 10 mg daily 5. Depression -will start antidepressant 6. Weakness, multifactorial -PT consultation, evaluation for disposition to either penitentiary or home 7. Chronic abdominal pain, etiology unclear question neuropathy from diabetes or prior zoster patient to continue carbamazepine and gabapentin Plan: Anticipate discharge home or to SNF in 1-2 days Quality VTE Deep Vein Thrombosis/Pulmonary Embolism Present on Admission: No
--- NOTE | 2019-08-31 15:17 | CM.DANOTE ---
DCP Assessment: Patient is a 64 yr old male who was admitted for elevated blood glucose about 1000. Patients PCP is Dr Sanchez at the [facility] clinic. CM/RN met with patient at the bedside and explained CM/RN role. Patient was alert and oriented x3 during CM meeting but with slowed speech. Patient currently lives with his brother Galo here in [facility]. CM/RN asked if patient was taking his perscribed insulin? patient stated he was not taking it before admission because he didn't realize how important his insulin medication was. Patient stated he was only put on insulin a short time ago and before that he managed his DM with oral medicaitons which his always takes. Patent stated he will be taking his insulin for sure from now on. CM/RN asked if patient would like information about DM education and services provided by the [facility]? Patient stated he would like the information. CM/RN will get informational hand-outs ready for patent as well. CM/RN Called and left a voice mail for the SW at [facility] [phone]. CM/RN would like to touch base with them to set up a follow up appointment for when the patient is ready to D/C as well as get him information and possibly set up to attend DM type 2 education classes that are held at the [facility] in [place]. CM/RN touched bases with SHANELLE Azevedo about patient. During AM rounds in was communicated that patient might benefit from SNF or HH services but since [place] does not cover those services and patient doesn't have any other insurance, or personal funds, placement will be challenging. Patient stated he was fine to return home at d/c. I: 1st: [facility] 2nd Self pay Plan: Current plan is to D/C home with follow up appointment with [facility] in [facility] as well as DM education resources. Vrs. HH or SNF options. Augustina Buenrostro RN, Discharge Planning/Care Management Discharge Assessment Start: 08/31/19 15:13 Freq: Status: Active Protocol: Document 08/31/19 15:13 HS (Rec: 08/31/19 15:17 HS [id number]) Discharge Planning Assessment Assigned Waiter/Waitress Buffet Augustina Buenrostro Advance Directives? No History Provided By Patient,Family Member Has Patient been admitted in last 30 No days? Prior Living Arrangements House Comment Patient lives with his brother Galo Fernandez Household Members family Type of transporation used prior to Relies on Others admit Independent with ADL's Yes Is patient alert and oriented? Yes Caregiver for Another No DME Already Rented / Owned FWW / WalkerQuique Comment SNF VS HH VS home Comment Melody has VA and VA doesn't pay for SNF or for HH services and patient doesn't have any other insurance Whiteboard Updated in Patient Room with Yes name and ext. # of Waiter/Waitress Buffet Review Status In Process Next Review Type Continued Stay Review
--- NOTE | 2019-08-31 16:41 | PC.NURSE ---
Notified Dr Nathan of recent blood glucose of 413. TO Dr Nathan give 8 units lispro instead of the 5 units that is ordered.
--- NOTE | 2019-08-31 16:44 | PT.IIE ---
Surgical History (Last Reviewed 08/30/19 @ 14:30 by Antonietta Bradford MD) Status post endoscopic retrograde cholangiopancreatography Medical History (Last Reviewed 08/30/19 @ 14:30 by Antonietta Bradford MD) Diabetes mellitus with ketoacidosis (Acute) Physical Therapy Inpatient Evaluation/Re-Eval M1 PT/OT-IP Prior Functional Status Start: 08/31/19 12:44 Freq: NEEDED Status: Active Protocol: Document 08/31/19 15:51 AW (Rec: 08/31/19 16:44 AW [id number]) Medical Review Prior Functional Status Medical History Reviewed Yes Diet/Fluid Consistency Clear Liquids Communication WNL Mobility and Gait Pt reports slow but independent mobility without assistive device Activities of Daily Living and IADL's Independent Social History Household Members family Living Arrangements Mobile home Number of Floors (Floors) One Floor Number of Stairs To Enter/Railing? Pt states he lives in a trailer located at [facility]. 4 CODI with left railing ascending Home Environment Standard Height Toilet,Tub/ Shower Home Equipment Grab Bars In Shower Employment Status Unemployed Additional Social History Comment Pt lives with his brother, Galo, who is an [employer] b[employer] driver but is home frequently. M2 PT-IP Current Condition Start: 08/31/19 12:44 Freq: NEEDED Status: Active Protocol: Document 08/31/19 15:51 AW (Rec: 08/31/19 16:44 AW [id number]) Physical Therapy Current Condition Current Condition Evaluation Date 08/31/19 Treatment Diagnosis hyperglycemia, chronic abd pain, difficulty in walking Onset Date 08/30/19 Precautions Other Precautions Gait belt above abdomen due to chronic abd pain Weight Bearing Status Weight Bearing Status Full Weight Bearing M3 PT-IP Subjective Start: 08/31/19 12:44 Freq: NEEDED Status: Active Protocol: Document 08/31/19 15:51 AW (Rec: 08/31/19 16:44 AW [id number]) Subjective Physical Therapy Visit Type Type Initial Evaluation Visit Start Time 15:12 Visit Stop Time 15:42 Total Visit Minutes 30 Number of PHOTOGRAPHIC PROCESS ATTENDANT Visits 0 Physical Therapy Visit Comments Patient Comments Pt willing to participate with therapy Patient Goals Pt expresses interest in returning home at discharge Therapy Pain Assessment Pain When Pain Assessed During Mobility Pain Present Pain Present Pain Reported Location Abdomen Pain Behaviors Facial Grimacing,Wincing Pain Management Techniques Modification of Treatment,Re- positioning M4 PT-IP Mobility and Gait Start: 08/31/19 12:44 Freq: NEEDED Status: Active Protocol: Document 08/31/19 15:51 AW (Rec: 08/31/19 16:44 AW [id number]) PT-Bed Mobility Assessment Supine to Sit Supine to Sit Standby Assistance Sit to Supine Sit to Supine Standby Assistance Scooting Scooting to Edge of Bed Standby Assistance Scooting Up and Down in Bed Standby Assistance PT-Transfer Assessment Sit to and From Stand Sit to and from Stand Contact Guard Assistance, Minimal Assistance,1 Person Assistance,Use of Upper Extremities Equipment Transfer Assistive Device Gait Belt,Front Wheeled Walker Orthotic/Prosthetic Devices or Brace: No Transfers Transfer Destination Bed,Chair Transfer Technique pt ambulated with FWW Transfer Ability Level of Assist Contact Guard Assistance,1 Person Assistance,Use of Upper Extremities Comments Mobility Comments Pt encountered sitting up in bed. He completed all bed mobility with HOB flat SBA. Pt stood from EOB and required min A x 1 to recover from posterior loss of balance. Pt sat down and stood up again using FWW but still needed CGA to min A for balance. During transfer to chair, pt demonstrated good technique with FWW and ability to sit with good eccentric control. Gait Assessment Gait Gait Assistance Required: Contact Guard Assist,Minimum Assistance Distance (Feet) 120 Able to Maintain Weight Bearing Status Yes During Gait Assistive Devices Assistive Device Gait Belt,Front Wheeled Walker Orthotic/Prosthetic Devices or Brace: No Gait Deviations General Gait Pattern Decreased Stride Length, Decreased Feet Clearance, Flexed Trunk,Wide Based Gait Factors Limiting Gait Function Factors Limiting Gait Function Decreased Activity Tolerance, Decreased Sensation,Decreased Strength,Poor Balance Comments Gait Comments Jigar ambulated 120 feet using FWW CGA to occasional min A due to several losses of balance - most frequently posteriorly. With FWW, he was able to complete head turns and nods. Tight radius turns were challenging with pt again losing balance posteriorly. Stair Climbing Assessment Comments Stair Climbing Comments Pt did not feel he had the strength to attempt stairs today. PT-Balance Assessment Sitting Balance and Reactions Static Sitting Balance Ability Good Dynamic Sitting Balance Ability Good Standing Balance and Reactions Static Standing Balance Ability Fair Dynamic Standing Balance Ability Poor Device Used FWW M5 PT-IP Objective Assessments Start: 08/31/19 12:44 Freq: NEEDED Status: Active Protocol: Document 08/31/19 15:51 AW (Rec: 08/31/19 16:44 AW [id number]) Orientation Orientation/Cognition Level of Alertness Alert Orientation Name,Day of Week,Place, Situation Language Function Ability No Deficits Noted Safety Awareness Decreased Safety Awareness Memory Description No Deficits Noted Comments Pt is pleasant with a flat affect. Gross Range of Motion Upper Extremity ROM Assessment Within Functional Limits Lower Extremity ROM Assessment Within Functional Limits Strength Upper Extremity Strength Assessment Bilaterally Impaired Shoulder painful shoulder flexion and abduction 4-/5 Lower Extremity Strength Assessment Bilaterally Impaired Hip 4-/5 Knee 4/5 Ankle 4-/5 Comments Strength Comments BLE strength impaired but symmetrical Coordination Assessment Gross Coordination Gross Coordination WNL Assessment Finger to Nose Test Normal Performance Sensation Assessment Sensation Gross Sensation Right LE Impaired,Left LE Impaired Light Touch Impaired Sensation Description Tingling Comments Sensation Comments Tingling reported in distal LE 's with stocking distribution. M6 PT-IP Treatment Start: 08/31/19 12:44 Freq: NEEDED Status: Active Protocol: Document 08/31/19 15:51 AW (Rec: 08/31/19 16:44 AW [id number]) Physical Therapy Treatment Education Education Provided Precautions,Safety Other Treatments Other Treatment Performed Educated pt on PT plan of care and safe use of FWW, possible need for FWW at home - even if temporarily. M7 PT-IP Assessment and Plan Start: 08/31/19 12:44 Freq: NEEDED Status: Active Protocol: Document 08/31/19 15:51 AW (Rec: 08/31/19 16:44 AW [id number]) PT Summary Assessment and Plan Potential Rehabilitation Potential Good Status of Condition at Evaluation Evolving Summary Impairments Pain,Strength,Balance, Sensation,Bed Mobility, Transfers,Gait,Activity Tolerance Assessment Summary Jigar is a 64 yo man admitted with hyperosmolar hyperglycemic state due to uncontrolled diabetes and chronic abdominal pain. At baseline, he is independent with all functional mobility, but endorses a decline in steadiness over the past few months. On evaluation, he has significant lower extremity weakness, poor balance, and poor safety awareness evident in his reluctance to use an assistive device. If unable to clear stairs for home entry, he will require SNF rehab to address strength and balance deficits. If able to meet the functional goals of this plan of care, he will be safe to discharge home with assist but will benefit from home health services to address the same deficits and increase pt's safety in the home. Goals Bed Mobility Goal Independent Transfer Goal Standby Assistance,Front Wheeled Walker Gait Goal Standby Assistance,Front Wheel Walker Gait Distance 200 Other Goals - up/down 4 steps with left rail ascending SBA Frequency of Treatment Frequency Of Treatment Once a Day Treatment Plan Physical Therapy Treatment Plan Bed Mobility Training,Transfer Training,Gait Training, Therapeutic Exercise,Balance Retraining,Discharge Planning, Neuromuscular Re-ed Other Recommendations and Next Treatment - consider DGI for Focus quantification of balance deficits - gait training - stairs Recommendations To Nursing Amount of Assist Needed Standby Assistance,1 Person Assist Discharge Recommendations PT Discharge Recommendations Home with Assistance,Home Health,SNF Rehab Other Discharge Recommendations Home with assist and HH vs SNF . Will continue to assess. Equipment Needed for Home Before FWW for home use Discharge
[2019-08-31] MEDS: GEMFIBROZIL 600 MG TABLET PO (16:58)
[2019-08-31] MEDS: GABAPENTIN 600 MG TABLET PO (20:50)
[2019-08-31] MEDS: VENLAFAXINE 37.5 MG TABLET PO (20:51)
[2019-08-31] MEDS: carBAMazepine 200 MG TABLET 300 MG PO (20:51)
[2019-08-31] MEDS: INSULIN GLARGINE 100 UNIT/ML 3ML PEN 20 UNIT SUBCUT (20:59)
[2019-09-01] VITALS (7 sets, daily range): BP systolic 85–130; BP diastolic 49–75; PULSE 64–73; RESP 15–18; TEMP 36.7–36.8; O2SAT 96–98
[2019-09-01 06:31] LABS: Blood Urea Nitrogen 20 mg/dL (9-20); Calcium 8.7 mg/dL (8.4-10.2); Carbon Dioxide 26 mmol/L (22-32); Chloride 107 mmol/L (98-107); Estimated Glomerular Filt Rate > 60.0 mL/min (>60); Glucose 229 mg/dL (80-110); HEMOLYSIS < 15 (0-50); Potassium 3.9 mmol/L (3.4-5.1); Sodium 138 mmol/L (137-145)
[2019-09-01] MEDS: PANTOPRAZOLE 40 MG TABLET PO (06:54)
[2019-09-01] MEDS: GEMFIBROZIL 600 MG TABLET PO ×2 (06:54→16:02)
[2019-09-01] MEDS: VENLAFAXINE 37.5 MG TABLET PO (08:21)
[2019-09-01] MEDS: carBAMazepine 200 MG TABLET 300 MG PO (08:21)
[2019-09-01] MEDS: ENOXAPARIN 40 MG/0.4 ML SYRINGE SUBCUT (08:22)
[2019-09-01] MEDS: GABAPENTIN 600 MG TABLET PO ×2 (08:22→16:02)
[2019-09-01] MEDS: INSULIN ASPART 100 UNIT/ML INSULN PEN SUBCUT ×3 (08:23→16:57)
--- NOTE | 2019-09-01 08:45 | OT.IP.EVAL ---
Current Diagnoses Type 2 diabetes mellitus with hyperglycemia (08/30/19) Past Medical History (Last Reviewed 08/30/19 @ 14:30 by Antonietta Bradford MD) Diabetes mellitus with ketoacidosis (Acute) Surgical History (Last Reviewed 08/30/19 @ 14:30 by Antonietta Bradford MD) Status post endoscopic retrograde cholangiopancreatography Occupational Therapy Inpatient Evaluation/Re-Eval M1 PT/OT-IP Prior Functional Status Start: 09/01/19 13:06 Freq: NEEDED Status: Active Protocol: Document 09/01/19 13:06 [facility] (Rec: 09/01/19 13:22 [facility] [id number]) Medical Review Prior Functional Status Medical History Reviewed Yes Diet/Fluid Consistency Clear Liquids Communication WNL Mobility and Gait Pt reports slow but independent mobility without assistive device Activities of Daily Living and IADL's Independent, pt states brother assist with finances. Social History Household Members family Living Arrangements Mobile home Number of Floors (Floors) One Floor Number of Stairs To Enter/Railing? Pt states he lives in a trailer located at [facility]. 4 CODI with left railing ascending Home Environment Standard Height Toilet,Tub/ Shower Home Equipment Grab Bars In Shower Employment Status Unemployed Additional Social History Comment Pt lives with his brother, Galo, who is an [employer] driver's education instructor but is home frequently. M2 OT-IP Current Condition Start: 09/01/19 13:06 Freq: Status: Active Protocol: Document 09/01/19 13:06 [facility] (Rec: 09/01/19 13:22 [facility] [id number]) Occupational Therapy Current Condition Current Condition Evaluation Date 09/01/19 Treatment Diagnosis Hyperglycemia, decreased mobility Weight Bearing Status Weight Bearing Status Weight Bear as Tolerated M3 OT- IP Subjective and Pain Start: 09/01/19 13:06 Freq: Status: Active Protocol: Document 09/01/19 13:06 [facility] (Rec: 09/01/19 13:22 [facility] [id number]) OT- Subjective Occupational Therapy Visit Type Type Initial Evaluation Visit Start Time 08:45 Visit Stop Time 09:37 Total Visit Minutes 52 Occupational Therapy Visit Comments Patient Comments Pt wanting to shower. Patient/Caregiver Goals Pt wanting to get stronger and be able to go home. OT Pain Assessment Pain When Pain Assessed At Rest Pain Present Pain Present Denied Pain M4 OT- IP ADL's Start: 09/01/19 13:06 Freq: Status: Active Protocol: Document 09/01/19 13:06 [facility] (Rec: 09/01/19 13:22 [facility] [id number]) OT [id number] Comments OT Self-Feeding Comments Not at meal time. OT ADL-Grooming General Evaluation Grooming Ability Standby Assistance Comments OT Grooming Comments SBA with FWW while standing. OT ADL-Oral Care General Eval Oral Care Ability Independent OT ADL-Dressing General Eval Lower Body Dressing Ability Standby Assistance Comments OT Dressing Comments Able to do while sitting on the bed. OT ADL-Toileting General Evaluation Toileting Ability Independent Comments OT Toileting Comments Independent for hygiene needs. OT ADL-Bathing Bathing Type Bathing Type Shower General Evaluation Bathing Ability Standby Assistance Areas Needing Assistance Wash/Dry Back Devices Bathing Equipment Hand Held Shower Sprayer, Shower Chair with Arms Comments OT Bathing Comments Pt due to fatigue needing to use shower chair to sit for shower. Pt would benefit from shower chair at home and brother to be present and assist at needed for the shower. M5 OT- IP IADL's Start: 09/01/19 13:06 Freq: Status: Active Protocol: Document 09/01/19 13:06 [facility] (Rec: 09/01/19 13:22 [facility] [id number]) OT-Instrumental Activities of Daily Living Home Safety Awareness Ability to Problem Solve Emergency Able to Problem Solve Situations Money Management Money Management Caregiver Provides Assistance Meal Preparation Meal Preparation Comments At this time , pt may have to sit at times for meal prep. Buggyman Buggyman Caregiver Provides Assist M6 OT- IP Functional Cognition Start: 09/01/19 13:06 Freq: Status: Active Protocol: Document 09/01/19 13:06 [facility] (Rec: 09/01/19 13:22 [facility] [id number]) Cognitive Factors Limiting Selfcare Function Cognitive Ability Level of Alertness Alert Patient Orientation Name,Place,Situation Attention Span Ability Capable of Focused Attention, Capable of Sustained Attention Ability to Follow Commands Able to Follow One Step Commands Safety Awareness Underestimates Need for Assistance Cognitive Comments Cognitive Assessment Comments Pt needing extra time to process needs for ADl's. OT- Vision and Hearing OT- Hearing Assessment OT- Hearing Assessment WFL M7 OT- IP Mobility and Balance Start: 09/01/19 13:06 Freq: Status: Active Protocol: Document 09/01/19 13:06 [facility] (Rec: 09/01/19 13:22 [facility] [id number]) OT- Bed Mobility Assessment Rolling Type of Rolling Roll to Left Level of Assistance Standby Assistance Supine to Sit Supine to Sit Assist Standby Assistance OT-Transfer Assessment Sit to and From Stand Sit to and from Stand Standby Assistance,Contact Guard Assistance Transfers Transfer Ability Standby Assistance Technique Transfer Destination Bed,Shower Stall,Toilet Transfer Technique Stand Step Pivot Devices Transfer Assistive Devices Gait Belt,Front Wheeled Walker Comments Mobility Comments Pt cues to lean forwards and push up with arms on bed to stand. At times pt has posterior lean and cues to lean forwards. Pt much safer to use FWW for balance. OT- Gait Assessment Comments Gait Ability Comments SBA with FWW. OT- Balance Assessment Sitting Balance and Reactions Static Sitting Balance Ability Normal Dynamic Sitting Balance Ability Good Standing Balance and Reactions Static Standing Balance Ability Fair M8 OT- IP Objective Assessments Start: 09/01/19 13:06 Freq: Status: Active Protocol: Document 09/01/19 13:06 [facility] (Rec: 09/01/19 13:22 [facility] [id number]) OT Gross Range of Motion Upper Extremity Range of Motion Assessment Within Functional Limits OT Strength Upper Extremity Strength Assessment Within Functional Limits OT-Muscle Tone Assessment Muscle Tone WNL Yes M9 OT- IP Assessment and Plan Start: 09/01/19 13:06 Freq: Status: Active Protocol: Document 09/01/19 13:06 [facility] (Rec: 09/01/19 13:22 [facility] [id number]) OT Summary Assessment and Plan Potential Rehabilitation Potential Good Analytic Complexity at Evaluation Low Summary OT Impairments Balance,Functional Mobility, Dressing,Bathing,Shower Transfers Progress Towards Goals Progressing Toward Goals Assessment Summary Pt main barrier are steps, decreased high level balance and activity tolerance. Pt would benefit home with assist versus short skilled rehab. Per case management note, pt does not have coverage by insurance for skilled rehab. Goals Dressing Goal Independent Toileting Goal Independent Bathing Goal Standby Assistance Toilet Transfer Goal Independent Shower Transfer Goal Standby Assistance Days to Meet Goals 3 Frequency of Treatment Frequency Of Treatment Once a Day Treatment Plan OT Treatment Plan ADL Training,Functional Mobility,Patient/Family Education,Discharge Planning Discharge Recommendations OT Discharge Recommendations Home with Assistance, Home Equipment Needs Shower chair, FWW versus cane
--- NOTE | 2019-09-01 08:52 | PC.NURSE ---
Patient alert oriented, denies pain ans nausea, ate small amount of breakfast. OT in to shower patient.
[2019-09-01] MEDS: FISH OIL 1,000 MG CAPSULE 1000 MG PO (10:30)
--- NOTE | 2019-09-01 13:07 | PT.IPTN ---
Current Diagnoses Type 2 diabetes mellitus with hyperglycemia (08/30/19) Physical Therapy Treatment Note M2 PT-IP Current Condition Start: 08/31/19 12:44 Freq: NEEDED Status: Active Protocol: Document 08/31/19 15:51 AW (Rec: 08/31/19 16:44 AW [id number]) Physical Therapy Current Condition Current Condition Evaluation Date 08/31/19 Treatment Diagnosis hyperglycemia, chronic abd pain, difficulty in walking Onset Date 08/30/19 Precautions Other Precautions Gait belt above abdomen due to chronic abd pain Weight Bearing Status Weight Bearing Status Full Weight Bearing M3 PT-IP Subjective Start: 08/31/19 12:44 Freq: NEEDED Status: Active Protocol: Document 09/01/19 12:51 AW (Rec: 09/01/19 13:07 AW [id number]) Subjective Physical Therapy Visit Type Type Treatment Note Visit Start Time 12:26 Visit Stop Time 12:49 Total Visit Minutes 23 Number of ENGINE LATHE OPERATOR Visits 0 Physical Therapy Visit Comments Patient Comments Pt just finishing with diabetes education, feeling overwhelmed but willing to participate with PT Therapy Pain Assessment Pain When Pain Assessed During Mobility Pain Present Pain Present Denied Pain M4 PT-IP Mobility and Gait Start: 08/31/19 12:44 Freq: NEEDED Status: Active Protocol: Document 09/01/19 12:51 AW (Rec: 09/01/19 13:07 AW [id number]) PT-Bed Mobility Assessment Supine to Sit Supine to Sit Standby Assistance Scooting Scooting to Edge of Bed Standby Assistance PT-Transfer Assessment Sit to and From Stand Sit to and from Stand Standby Assistance,1 Person Assistance,Use of Upper Extremities Equipment Transfer Assistive Device Gait Belt,Front Wheeled Walker Orthotic/Prosthetic Devices or Brace: No Transfers Transfer Destination Chair Transfer Technique pt ambulated with SPC Transfer Ability Level of Assist Standby Assistance,1 Person Assistance,Use of Upper Extremities Comments Mobility Comments Pt sitting up in bed upon therapist arrival. Pt sat up to EOB SBA and stood with FWW to head to the bathroom. Pt stood at toilet to urinate and had two posterior losses of balance which would have resulted in falls without grab bars and therapist assist. He then ambulated the halls and returned to his room, transferring to the chair SBA with SPC. Gait Assessment Gait Gait Assistance Required: Standby Assistance,Contact Guard Assist,1 Person Assist Distance (Feet) 350 Able to Maintain Weight Bearing Status Yes During Gait Assistive Devices Assistive Device Gait Belt,Straight Cane,Front Wheeled Walker Orthotic/Prosthetic Devices or Brace: No Gait Deviations General Gait Pattern Decreased Stride Length, Decreased Feet Clearance, Flexed Trunk,Wide Based Gait Factors Limiting Gait Function Factors Limiting Gait Function Decreased Activity Tolerance, Decreased Sensation,Decreased Strength,Poor Balance Comments Gait Comments Jigar ambulated 300 feet around the unit with SPC and SBA to occasional CGA to recover from lateral loss of balance in turns. Level of assist was no different than with FWW. He would likely do as well with either device. Ambulation trial without assistive device required CGA at all times due to unsteady gait. Stair Climbing Assessment Evaluation Level of Assist On Stairs Standby Assistance,Contact Guard Assistance Devices Stair Climbing Assistive Devices Straight Cane,Left Railing Technique/Endurance Stair Climbing Direction Ascend and Descend Stair Climbing Technique Step Over Step,Step to Step Number of Steps Climbed 3 Stair Climbing Set # Repetitions (reps) 4 Comments Stair Climbing Comments Pt required CGA or close SBA for stairs with left rail ascending only and step over step patterning. He required only SBA with use of left rail and SPC in opposite hand using step-to pattern. Educated pt to consider use of SPC and step-to pattern for stairs at home. PT-Balance Assessment Sitting Balance and Reactions Static Sitting Balance Ability Good Dynamic Sitting Balance Ability Good Standing Balance and Reactions Static Standing Balance Ability Fair Dynamic Standing Balance Ability Fair Device Used SPC M5 PT-IP Objective Assessments Start: 08/31/19 12:44 Freq: NEEDED Status: Active Protocol: Document 08/31/19 15:51 AW (Rec: 08/31/19 16:44 AW [id number]) Orientation Orientation/Cognition Level of Alertness Alert Orientation Name,Day of Week,Place, Situation Language Function Ability No Deficits Noted Safety Awareness Decreased Safety Awareness Memory Description No Deficits Noted Comments Pt is pleasant with a flat affect. Gross Range of Motion Upper Extremity ROM Assessment Within Functional Limits Lower Extremity ROM Assessment Within Functional Limits Strength Upper Extremity Strength Assessment Bilaterally Impaired Shoulder painful shoulder flexion and abduction 4-/5 Lower Extremity Strength Assessment Bilaterally Impaired Hip 4-/5 Knee 4/5 Ankle 4-/5 Comments Strength Comments BLE strength impaired but symmetrical Coordination Assessment Gross Coordination Gross Coordination WNL Assessment Finger to Nose Test Normal Performance Sensation Assessment Sensation Gross Sensation Right LE Impaired,Left LE Impaired Light Touch Impaired Sensation Description Tingling Comments Sensation Comments Tingling reported in distal LE 's with stocking distribution. M6 PT-IP Treatment Start: 08/31/19 12:44 Freq: NEEDED Status: Active Protocol: Document 09/01/19 12:51 AW (Rec: 09/01/19 13:07 AW [id number]) Physical Therapy Treatment Education Education Provided Precautions,Safety M7 PT-IP Assessment and Plan Start: 08/31/19 12:44 Freq: NEEDED Status: Active Protocol: Document 09/01/19 12:51 AW (Rec: 09/01/19 13:07 AW [id number]) PT Summary Assessment and Plan Potential Rehabilitation Potential Good Status of Condition at Evaluation Evolving Summary Impairments Pain,Strength,Balance, Sensation,Bed Mobility, Transfers,Gait,Activity Tolerance Progress Towards Goals Progressing Toward Goals Assessment Summary Jigar performed as well with SPC as he did with FWW. Spent time discussing need for assistive device at home for balance. This therapist feels pt is more likely to use a SPC and advised him to purchase one before going home. If he would like to take a FWW instead (even though his brother states it is too large to fit everywhere in the trailer), PT is happy to dispense a FWW. PT continues to recommend discharge to home with assist and with home health therapy services to address balance impairments and safety in the home. Goals Bed Mobility Goal Independent Transfer Goal Standby Assistance,Front Wheeled Walker Gait Goal Standby Assistance,Front Wheel Walker Gait Distance 200 Other Goals - up/down 4 steps with left rail ascending SBA Days to Meet Goals 5 Frequency of Treatment Frequency Of Treatment Once a Day Treatment Plan Physical Therapy Treatment Plan Bed Mobility Training,Transfer Training,Gait Training, Therapeutic Exercise,Balance Retraining,Discharge Planning, Neuromuscular Re-ed Other Recommendations and Next Treatment - consider DGI for Focus quantification of balance deficits - gait training with SPC - stairs with left rail and SPC Recommendations To Nursing Amount of Assist Needed 1 Person Assist Discharge Recommendations PT Discharge Recommendations Home with Assistance,Home Health Equipment Needed for Home Before FWW or SPC per pt preference Discharge
--- NOTE | 2019-09-01 13:59 | DIET.PN ---
Dietary Progress Note Assessment: Mr. Jackson is a 64 yom with history of type 2 diabetes, chronic abdominal pain, diabetic polyneuropathy who was brought into the hospital for nausea, vomiting, diarrhea and frequent falls. His BG was > 1000 on admission. His brother was present for assessment and was able to provide dietary and medication hx. Patient is prescribed metformin and lantus for diabetes management, but reports he does not take them. He states he has not been checking his BG then later indicates he does not have a glucometer. Pt brother concerned with discharge plan to go home rather than care home facility. He is afraid the patient will be noncompliant with plan of care. Pt does report nausea and abdominal pain with excessive thirst and fatigue. He reports drinking almost a gallon of milk daily and eating large amounts of yogurt and fruit cups. He is able to shop and prepare his own meals. [facility] and has had no formal diabetes education. HT: 177.8cm WT: 66 kg UBW: 68 kg x 3 wks ago per pt report BMI: 20.9 Labs: Cr: 0.50 L Gluc: 656, 167, 364, 229 A1c: 12.4 Tr Chol: 287 MNA: 8 Adrian: 14 Nutrition Diagnosis: Altered nutrition related laboratory values r/t impaired glucose metabolism, endocrine dysfunction aeb elevated glucose, HbgA1c, inadequate glucose control, estimated intake of food high in refined carbohydrates. Interventions: 1. Discussed pathophysiology of diabetes and impact of nutrition/diet on blood sugar control.? Discussed fed versus non-fed state.?? Reviewed target numbers for fasting and 2 hr post prandial glucose. 2. Discussed the effect of carbohydrates/protein/fat on blood sugar control.? Stressed importance of consistent carbohydrate intake at each meal and provided instructions for recommended servings/portions of carbohydrates/protein per meal. Provided pt with educational material. 3. Reviewed carbohydrate counting and measuring carbohydrate content via servings sizes and reading nutrition labels.? Provided handouts.?? 4. Discussed the difference between simple versus complex carbohydrates and the effect of fiber on blood sugar control.? Discussed various methods to increase fiber content in diet. 5. Discussed importance of maintaining good glucose control and taking medications as prescribed. 6. Instructed patient to monitor fasting and 2 hr PP glucose each meal while initiating lantus. May decreased to alternating meal time glucose checks when blood glucose values begin to stabilize. 7. Recommended patient to outpatient diabetes education program. Diet Order: Carb consistent EER: 2000 martin @ 30 martin/kg; Pro: 85-100g @ 1.3-1.5 g/kg; CHO: 45g/meal , 15 g/snacks Monitoring/Evaluations: Weight, PO's, glucose. Pt brother concerned pt will be discharged without needed medications and supplies. Assured them he will have prescription for appropriate management.
--- NOTE | 2019-09-01 14:49 | CM.DPC ---
DCP/Continued: Received notification from provider that patient medically stable for d/c today. Asked STATION ATTENDANT/Ann to check on whether or not patient had SNF benefit [facility] the [facility]. Ann called and it was determined that patient does not. Met with patient and brother at bedside. Brother extremely concerned about patient discharging home and not follow up as outpatient? Brother unsure on whether or not patient has provider. Patient also appears to be unclear? Brother requesting [facility] with [facility] services including medial and mental health. Placed call to [facility] office and spoke with Crystal. Appointment made for patient on SundaySeptember 08 at 10:00AM check in. Asked STATION ATTENDANT/Ann to fax clinical to [place] for per their request. Patient and brother agreeable to plan. Cane obtained for patient to use at home. In addition, provided patient/brother with Medicaid application and [facility] information. P: Home today. Community resources and appointment made for next week. SHANELLE Gallardo
--- NOTE | 2019-09-01 16:33 | P.DS_ITS ---
History of Present Illness History of Present Illness Date Patient Seen: 08/30/19 Chief complaint: High glucose Narrative: Written by Dr. Nathan: The patient is a 64-year-old man with a history of type 2 diabetes, chronic abdominal pain, diabetic polyneuropathy who was brought into the hospital for nausea vomiting diarrhea and frequent falls. The patient is unable to provide any history. History is obtained from the emergency department and from the patient's daughter. Apparently he is a type 2 diabetic but has recently been prescribed insulin. He does not take his insulin and has chronically elevated blood sugars. The patient spoke to his daughter 2 days ago and was not quite feeling well. Brother states that today he was confused. He attempted to walk multiple times and each time he tried to walk he would fall down. The patient had reported diarrhea. It's unclear how long he has had diarrhea. He also has chronic abdominal pain. According to the daughter he is on carbamazepine and gabapentin for his abdominal pain. It's felt that this is likely related to prior infection with shingles. There is also report that the patient has been worked up for mesenteric ischemia. According to the daughter the patient has lost 60 lb over the past 2 years. He is unable to give us any history. He is slow to answer or respond to questions. He states over and over that his mouth is dry. He denies shortness of breath, he denies any pain in his chest, he does report diarrhea, he reports abdominal pain which has been present for ?a long time he denies any dysuria hematuria or pyuria. He has had no fever chills. Further review of systems is essentially unobtainable patient was evaluated in the emergency room and found to have a blood sugar of over 1000. Patient is admitted to the hospital for hyper osmolar state. Discharge Providers Provider Date of admission: 08/30/19 15:41 Discharge Date: 09/01/19 Consults: 08/30/19 17:40 Consult to Dietitian, Adult Routine Comment: Reason For Exam: assessed at high risk 08/31/19 00:57 Consult to ALMOND BLANCHER OPERATOR - Professor Of Visual Arts Routine Comment: patient non-complience, self harm. 08/31/19 10:31 Consult to Physical Therapy Evaluate & Treat Comment: single point cane for home use Physician Instructions: Evaluate and Treat 09/01/19 07:42 Consult to Occupational Therapy Evaluate & Treat Comment: Physician Instructions: Evaluate and treat Discharge provider: Naomi Potter DO Summary Hospital Course Discharge Diagnosis: 1. Hyperosmolar hyperglycemic state, secondary to diabetes mellitus type II, present on admission. Resolved. 2. Hypernatremia, present on admission. Resolved. 3. Hyperlipidemia, chronic, present on admission. Stable. 4. Hypertension, chronic, present on admission. Stable. 5. Depression, chronic, present on admission. Stable. 6. Weakness, multifactorial, present on admission. Stable. 7. Chronic abdominal pain, etiology unclear, present on admission. Stable. Hospital Course: Jigar Jackson is a 64-year-old man with a past medical history significant for diabetes mellitus type II, insulin using, with complication of diabetic neuropathy and chronic abdominal pain who presented to the ED with nausea, vomiting, diarrhea and frequent falls. 1. Hyperosmolar hyperglycemic state, secondary to diabetes mellitus type II, present on admission. Resolved. -Hemoglobin A1C 12.4%. Markedly elevated blood glucose at 1195 due to noncompliance with medication regimen likely due to significant depression. Patient reports 60 lbs unintentional weight loss over last 1-2 years. -Initiated non-DKA protocol with insulin gtt, fluid replacement with normal saline then transitioned to 0.45% normal saline and then D5 0.45% normal saline until blood glucose was less than 250. Monitored blood glucose and electrolytes every 4 hours and repleted as necessary. Transitioned off insulin gtt and restarted home regimen as below. -Previous provider discussed with the patient need to take medication as prescribed for which he is agreeable. His usual home regimen is metformin 500 mg twice daily and Lantus 28 units at bedtime. Patient has a poor appetite here was titrated up on insulin depending on his oral intake currently on Lantus 20 units daily at bedtime. Continued metformin 500 mg twice daily and low-dose correctional scale insulin. Patient was prescribed a glucose monitoring kit, provided education regarding diabetes mellitus type 2, nutrition, hypoglycemic emergencies, and insulin use. -Consulted dietitian and appreciate her recommendations. 2. Hypernatremia, present on admission. Resolved. -Secondary to HHS initially and then volume resuscitation during admission. -Initial sodium level 146 and trended up to 157. Now trending back down to 138. -Normal saline was switched to half-normal saline then discontinued once adequately hydrated. -Continued to monitor sodium level daily. Encouraged fluid intake. 3. Hyperlipidemia, chronic, present on admission. Stable. -Fasting lipid panel demonstrated: Total cholesterol 287, Triglycerides 1828, LDL TNP, and HDL 40. Hypertriglyceridemia secondary to poorly controlled diabetes. -Started gemfibrozil 600 mg twice daily with food and omega 3 1000 mg daily. Anticipate improvement in lipid control as his glycemic control improves. Consider atorvastatin 40 mg daily at bedtime as outpatient with monitoring for rhabdomyolysis. 4. Hypertension, chronic, present on admission. Stable. -Continued lisinopril 10 mg daily. 5. Depression, chronic, present on admission. Stable. -Continued venlafaxine 37.5 mg twice daily. May need to be up titrated or adjunctive medication added as an outpatient. 6. Weakness, multifactorial, present on admission. Stable. -Continued physical therapy evaluation and treatment who recommended home with home health. 7. Chronic abdominal pain, etiology unclear, present on admission. Stable. -Questionable neuropathy from diabetes or prior Herpes Zoster. -Continued carbamazepine 300 mg twice daily and gabapentin 600 mg three times daily. Exam Vital Signs (past 8 hours): - 09/01/19 11:21 Pulse Rate 66 Respiratory Rate 18 Blood Pressure 107/59 L Pulse Oximetry 97 Oxygen Delivery Method Room Air Oxygen Flow Rate 0 Narrative Exam Narrative: General: Older thin male sitting in bedside chair and in no acute distress, flat affect and withdrawn but otherwise appropriately interactive. HEENT: Normocephalic, atraumatic. External ears without defect. Pupils equal, round, and reactive to light. Anicteric sclerae, moist conjunctivae, and no lid lag. Neck: Supple with full range of motion.No lymphadenopathy or thyromegaly. Cardiovascular: Regular rate and rhythm without murmurs, rubs, or gallops appreciated. Pulmonary: Clear to auscultation bilaterally without crackles, wheezes, or rhonchi. Normal respiratory effort with no use of accessory muscles. Abdomen: Soft, bowel sounds present, nontender, nondistended. No hepatosplenomegaly or masses appreciated. Extremities: No clubbing, cyanosis, or edema. Skin: Normal temperature, turgor, and texture; no rash, ulcers, or subcutaneous nodules appreciated. Neurological: Cranial nerves grossly intact. Psychiatric: Severely depressed mood and flat affect. Patient is withdrawn. Appears alert and oriented to person, place, and time. Objective Labs Result Diagrams: 08/31/19 04:40 09/01/19 06:10 Labs: Laboratory Results - last 24 hr 09/01/19 06:10 Sodium 138 D Potassium 3.9 Chloride 107 Carbon Dioxide 26 BUN 20 Creatinine 0.50 L Estimated GFR > 60.0 BUN/Creatinine Ratio 40.0 H Glucose 229 H D Calcium 8.7 Discharge Plan Discharge Plan Patient Disposition: Home Discharge comment: You're being discharged home. Your diabetes is uncontrolled and your hemoglobin A1c is 12.4% indicative of an average blood glucose level of 300-400 at all times. You have been restarted on Lantus 20 units daily at bedtime. This may need to be increased as your appetite improves and will need to be done as an outpatient per your primary care provider. Your metformin was also restarted at 500 mg twice daily. You have been prescribed a glucose meter kit and recommend checking or blood glucose level 3-4 times daily including fasting and 3 measurements 2 hours after breakfast, lunch, and dinner. You have been provided a handout on hypoglycemia and given a prescription for glucose tabs in case of a hypoglycemic emergency. Please have your eyes checked at least once a year and your feet checked twice a year by your primary care provider. Your lipid levels are highly elevated due to your diabetes as well and you have been started on gemfibrozil 600 mg twice daily and Manning 3 fish oil 1000 mg daily. You have been prescribed lisinopril 10 mg daily for hypertension. You are severely depressed and you have also been started on venlafaxine 37.5 mg twice daily which will take 2-4 weeks to see results and this medication may also need to be titrated to effect. Your gabapentin, carbamazepine, and pantoprazole have all been renewed as well. Please follow-up with your primary care provider, Meredith Cevallos PA-C, at your scheduled appointment on 09/03 at 9:40 (check in 15 minutes early) regarding your hospitalization and continued treatment of your diabetes, hypertension, high cholesterol, and depression. You also have an appointment scheduled at the [facility] in [place] on 09/08 at 10:30 a.m. (check-in 15 minutes early) regarding your hospitalization for diabetes and recommend referral to Diabetic Education. Discharge orders & Medications Prescriptions: New gemfibrozil 600 mg Tablet 600 mg PO BIDAC Qty: 30 RF: 0 Lantus Solostar U-100 Insulin 100 unit/mL (3 mL) Insulin Pen 20 unit subcut BEDTIME Qty: 15 RF: 0 venlafaxine 37.5 mg Tablet 37.5 mg PO BID Qty: 60 RF: 0 lisinopril 10 mg Tablet 10 mg PO DAILY Qty: 30 RF: 0 Fish Oil 340-1,000 mg Capsule 1,000 mg PO DAILY Qty: 30 RF: 0 metformin 500 mg tablet 500 mg PO BID Qty: 60 RF: 0 glucose 4 gram tablet,chewable 4 gram PO Q15M PRN (Reason: hypoglycemia) Qty: 10 RF: 0 (DME) blood-glucose meter [Glucocard Expression] Kit See Rx Instructions .ROUTE .MEDSUPPLY Qty: 1 RF: 0 Continued Centrum Silver 0.4-300-250 mg-mcg-mcg Tablet 1 tab PO DAILY RF: 0 naproxen sodium [Aleve] 220 mg Capsule 400 mg PO Q4-6H PRN (Reason: Pain (Scale Score 1-3)) RF: 0 gabapentin 600 mg Tablet 600 mg PO TID Qty: 90 RF: 0 carbamazepine 200 mg Tablet 300 mg PO BID Qty: 60 RF: 0 pantoprazole 40 mg Tablet,Delayed Release (Dr/Ec) 40 mg PO DAILY Qty: 30 RF: 0 Follow up/Referrals: Meredith Cevallos PA-C [Non-Staff] - 09/03/19 9:40 am (appt:09/03 @ 9:[address] daniel in the [facility] second floor please arrive 15 minutes prior to your scheduled appointment (this is the same building you see dr cevallos)) Diet/Activity/Treatments Diet: Diet as Tolerated, Carb-consistent/Diabetic, Low-fat, Low-sodium and Low- cholesterol Activity: Activity as tolerated with forward wheeled walker and/or cane at all times Visit Report/Discharge Packet Instructions: Learn Your Diabetic ABCs, Type 2 Diabetes, Depression, Hyperosmolar Nonketotic Coma, DI for Diabetes Type 2, DI for Hypoglycemia, Diabetic Nephropathy, The Importance of Counting Carbs If You Have Diabetes, What to Eat if You Have Diabetes, DI for Suicidal Ideation-Adult Visit Report Forms: Patient Portal/API, Stroke Signs & Symptoms Quality VTE Deep Vein Thrombosis/Pulmonary Embolism Present on Admission: No
--- NOTE | 2019-09-01 18:17 | CM.DPC ---
DCP continued: DR. Potter called CM/RN to talk with patient about medications and diabetes services at the [facility]. Patients brother wanted patients prescriptions written out [facility]. CM/RN explained to patients brother per that patients prescriptions were sent to [facility] in [place]. Patients brother stated understanding and is planning on picking them up at [facility] and [facility] with [facility] tomorrow about [facility] the cost of the [facility]. [facility] Augustina Buenrostro RN.
--- NOTE | 2019-09-01 18:26 | PC.NURSE ---
Late entry 1730 - Pt alert and oriented. Standby assist. Pt denies complaints. Discharge education given to patient and brother.
== END 2019-09-01 18:00 | disposition home or self-care (01) | DRG 638 ==
LOC: ED 15:26 → AC 15:42 → ICU 09-01 16:02
PROVIDERS: Nurse Practitioner Adult Health; Admitting Provider Internal Medicine; Emergency Provider Emergency Medicine; Visit Provider Internal Medicine
DX: E11.65 Type 2 diabetes mellitus with hyperglycemia (principal); E87.0 Hyperosmolality and hypernatremia; E11.42 Type 2 diabetes mellitus with diabetic polyneuropathy; Z79.4 Long term (current) use of insulin; Z79.84 Long term (current) use of oral hypoglycemic drugs; E86.0 Dehydration; T38.3X6A Underdosing of insulin and oral hypoglycemic [antidiabetic] drugs, initial encounter; Z91.128 Patient's intentional underdosing of medication regimen for other reason; F32.9 Major depressive disorder, single episode, unspecified; F17.210 Nicotine dependence, cigarettes, uncomplicated; R10.9 Unspecified abdominal pain; E78.5 Hyperlipidemia, unspecified; I10 Essential (primary) hypertension; R53.1 Weakness
CPT/HCPCS: 36415; 36600; 71045; 80048; 80053; 80061; 81003; 81015; 82009; 82550; 82805; 82962; 83036; 83605; 83690; 83735; 84145; 84484; 85025; 85610; 85730; 87040; 87507; 87797; 93005; 93010; 93041; 94762; 96361; 96365; 97116; 97162; 97165; 97530; 97535; 99285; A9270; J1650; J2405; J2765; J3480; J7050

== ENCOUNTER 2019-12-15 11:47 | Emergency (ER) | payer OTHER, SELFPAY ==
[2019-08-30 17:28] VITALS: BMI 19.7
[2019-12-15 11:50] VITALS: BP 121/60; PULSE 96; RESP 12; TEMP 36.5; O2SAT 98
--- NOTE | 2019-12-15 12:00 | DI.RAD.S_ITS ---
PROCEDURE: XR HIP W PEL IF DONE RT 2V INDICATIONS: hip pain TECHNIQUE: AP pelvis with lateral view(s) of the right hip(s). COMPARISON: [facility], CT, CT CHEST ABDOMEN PELVIS WITH CONTRAST, 07/22/2018, 10:58. FINDINGS: Bones: No fractures or dislocations. Pelvic ring appears intact. No suspicious bony lesions. There is mild bilateral degenerative hip joint space narrowing with small periarticular osteophytes. SI joints appear narrowed but are incompletely evaluated. Soft tissues: The visualized bowel gas pattern is normal. No suspicious soft tissue calcifications. IMPRESSION: Degenerative changes as above. No visualized acute fracture or dislocation. However, if clinical concern and/or pain persist, short interval imaging followup in 7-10 days is recommended, as occult injury cannot be definitively excluded. Dictated by: Iona Moore M.D. on 12/15/2019 at 12:38 Approved by: Iona Moore M.D. on 12/15/2019 at 12:39
--- NOTE | 2019-12-15 12:10 | PC.NURSE ---
pt had syncople episode about a week ago, seen at [facility] deemed due to low blood sugar, has since recovered. continues to have right groin pain, believed started when he fell, no other injury. pt able to move to bed from wheelchair, slow with assistance.
--- NOTE | 2019-12-15 12:16 | ED_ITS ---
HPI - Extremity Injury (Lower) <Lucía Novoa, COLOR CONSULTANT-BC - Last Filed: 12/15/19 13:59> General Chief Complaint: Extremity Injury, Lower Stated Complaint: fell unconcious on pavement,injured inside of leg Time Seen by Provider: 12/15/19 11:56 Source: patient and family Mode of arrival: Wheelchair Limitations: no limitations History of Present Illness HPI Narrative: The patient is a 64-year-old male current smoker with history of diabetes who presents with a chief complaint of leg pain. He states has been ongoing for the past week. He states he was unconscious and was brought to [facility] when he collapsed at [employer] 7 days ago. He does not present to the emergency department for collapsing, he presents for his leg pain. He states he has pain on the right side of his hip, that has been ongoing for the past week. He took a few Aleve a few days ago for the pain, has not had anything yet today. He states it is worse with weight-bearing and ambulation. Related Data Home Medications Medication Instructions Recorded Confirmed Centrum Silver 1 tab PO DAILY 08/30/19 08/30/19 naproxen sodium [Aleve] 400 mg PO Q4-6H PRN 08/30/19 08/30/19 Previous Rx's Medication Instructions Recorded blood-glucose meter [Glucocard #1 each 09/01/19 Expression] carbamazepine 300 mg PO BID #60 tab 09/01/19 gabapentin 600 mg PO TID #90 tab 09/01/19 gemfibrozil 600 mg PO BIDAC #30 tab 09/01/19 glucose 4 gram PO Q15M PRN #10 tab 09/01/19 insulin glargine [Lantus Solostar 20 unit SUBCUT BEDTIME #15 ml 09/01/19 U-100 Insulin] lisinopril 10 mg PO DAILY #30 tab 09/01/19 metformin 500 mg PO BID #60 tab 09/01/19 omega-3 fatty acids-fish oil [Fish 1,000 mg PO DAILY #30 cap 09/01/19 Oil] pantoprazole 40 mg PO DAILY #30 tab 09/01/19 venlafaxine 37.5 mg PO BID #60 tab 09/01/19 ketorolac 10 mg PO TID PRN 5 Days #15 tab 12/15/19 Allergies Allergy/AdvReac Type Severity Reaction Status Date / Time carrot Allergy Severe ANAPHYLAXIS Verified 12/15/19 11:57 Review of Systems <PAKO Zavala - Last Filed: 12/15/19 13:59> Review of Systems Narrative: GENERAL: Denies chills, fatigue, malaise, fever, sweats. HEENT: Denies sinus pain, ear pain, sore throat, difficulty swallowing, dizziness. RESPIRATORY: Denies dyspnea, cough, wheezing, hemoptysis, sputum. CARDIOVASCULAR: Denies chest pain, palpitations, orthopnea, edema, GASTROINTESTINAL: Denies nausea, vomiting, abdominal pain, diarrhea, constipation, melena. : Denies dysuria, frequency, incontinence, hematuria, urinary retention. MUSCULOSKELETAL: See HPI SKIN: Denies rash, skin lesions, or other NEUROLOGIC: Denies weakness, headache, numbness, change in speech, confusion, seizures, incoordination. PSYCHIATRIC: No concerning psychosocial issues. 12 point review of systems is negative except for those stated above Patient History <PAKO Zavala - Last Filed: 12/15/19 13:59> Medical History Diabetes mellitus with ketoacidosis (Acute) Surgical History Status post endoscopic retrograde cholangiopancreatography Family History Brother Heart disease Father Heart disease Mother Diabetes mellitus Social History household members: family Smoking Status: Current every day smoker alcohol intake: never Smoking Status: Current every day smoker alcohol intake frequency: 0-2 drinks per day Substance Use Type: does not use Exam <PAKO Zavala - Last Filed: 12/15/19 13:59> Narrative Exam Narrative: GENERAL: This is a well-nourished, well-developed patient, no acute distress HEAD: Atraumatic. Normocephalic. No temporal or scalp tenderness. EYES: Pupils equal round and reactive. Extraocular motions intact. No scleral icterus. No injection or drainage. ENT: Nose without bleeding, purulent drainage or septal hematoma. Throat without erythema, tonsillar hypertrophy or exudate. Uvula midline. Airway patent. NECK: Trachea midline. No JVD or lymphadenopathy. Supple, nontender, no meningeal signs. CARDIOVASCULAR: Regular rate and rhythm RESPIRATORY: No cough. No increased respiratory effort. No accessory muscle use. GASTROINTESTINAL: Abdomen soft, non-tender, nondistended. No hepato- splenomegaly, or palpable masses. No guarding. EXTREMITIES: No pain to palpation generalized of right hip. Positive pedal pulses bilaterally. . Decreased wrist range of motion all rudd right hip. BACK: Nontender without deformity or crepitance. No flank tenderness. NEURO: AOx3. SKIN: No rash or erythema on visible skin Initial Vital Signs Initial Vital Signs: Vital Signs Temperature 97.7 F 12/15/19 11:50 Pulse Rate 96 H 12/15/19 11:50 Respiratory Rate 12 12/15/19 11:50 Blood Pressure 121/60 12/15/19 11:50 Pulse Oximetry 98 12/15/19 11:50 <Antonietta Bradford MD - Last Filed: 12/16/19 07:05> Initial Vital Signs Initial Vital Signs: Vital Signs Temperature 97.7 F 12/15/19 11:50 Pulse Rate 96 H 12/15/19 11:50 Respiratory Rate 12 12/15/19 11:50 Blood Pressure 121/60 12/15/19 11:50 Pulse Oximetry 98 12/15/19 11:50 Course <NAM Zavala-BC - Last Filed: 12/15/19 13:59> Orders Ordered: Discontinued Medications Ketorolac Tromethamine (Toradol) 60 mg IM NOW ONE Stop: 12/15/19 12:15 Last Admin: 12/15/19 12:31 Dose: 60 mg Documented by: SCANAPO Vital Signs Vital signs: Vital Signs - 8 hr 12/15/19 11:50 Temperature 97.7 F Pulse Rate 96 H Respiratory Rate 12 Blood Pressure 121/60 Pulse Oximetry 98 <Antonietta Bradford MD - Last Filed: 12/16/19 07:05> Orders Ordered: Discontinued Medications Ketorolac Tromethamine (Toradol) 60 mg IM NOW ONE Stop: 12/15/19 12:15 Last Admin: 12/15/19 12:31 Dose: 60 mg Documented by: SCANAPO Vital Signs Vital signs: Vital Signs - 8 hr 12/15/19 11:50 Temperature 97.7 F Pulse Rate 96 H Respiratory Rate 12 Blood Pressure 121/60 Pulse Oximetry 98 MDM - Extremity Injury (Lower) <PAKO Zavala - Last Filed: 12/15/19 13:59> Imaging Data Extremity x-ray #1: Radiologist's Impression: [address] [place] [id number] XRay Report Signed Patient: Jigar Jackson JMR#: [id number] : 7Acct:[id number] Age/Sex: 64 / MDate of Service: 12/15/19 Loc: ED Accession Number: [id number] Procedure: XR hip w pel if done RT 2V Ordering Provider: Lucía Novoa PROCEDURE: XR HIP W PEL IF DONE RT 2V INDICATIONS: hip pain TECHNIQUE: AP pelvis with lateral view(s) of the right hip(s). COMPARISON: [facility], CT, CT CHEST ABDOMEN PELVIS WITH CONTRAST, 07/22/2018, 10:58. FINDINGS: Bones: No fractures or dislocations. Pelvic ring appears intact. No suspicious bony lesions. There is mild bilateral degenerative hip joint space narrowing with small periarticular osteophytes. SI joints appear narrowed but are incompletely evaluated. Soft tissues: The visualized bowel gas pattern is normal. No suspicious soft tissue calcifications. IMPRESSION: Degenerative changes as above. No visualized acute fracture or dislocation. However, if clinical concern and/or pain persist, short interval imaging followup in 7-10 days is recommended, as occult injury cannot be definitively excluded. Dictated by: Iona Moore M.D. on 12/15/2019 at 12:38 Approved by: Iona Moore M.D. on 12/15/2019 at 12:39 [facility] Narrative Medical decision making narrative: The patient is a 64-year-old male who presents with a chief complaint of hip pain for a week. He was neurovascularly intact throughout stay in the emergency department. X-ray shows arthritic changes with osteophytes. Patient felt 100% pain free after Toradol. He is given prescription of Toradol and discussed at length following up with primary care provider, potential for physical therapy, not combining Toradol with any other NSAIDs. Patient is able to ambulate with steady gait after Toradol administration discharged home with brother. Patient has no questions or concerns upon discharge and states understanding of return precautions as well as follow-up care. Discharge Plan Departure Patient Disposition: Home Clinical Impression: Acute pain of right hip Discharge Date/Time: 12/15/19 13:27 Instructions: Help for Hip Pain, DI for Hip Pain Activity Restrictions/Additional Instructions: Thank you for trusting us with your care today. As I discussed, your x-ray shows no acute fracture. It does show signs of arthritis. It is important that you follow up with primary care provider, especially if worsening or no improvement. There can be fractures that did not show up on initial x-ray. Often times physical therapy can be very beneficial I have given you a prescription of Toradol. I sent this prescription to [facility]. This is an NSAID. Do not combine it with other NSAIDs such as Aleve or ibuprofen. I suggest taking it with some food, as it can irritate your stomach. Please follow-up with your primary care provider with [facility] Prescriptions: New ketorolac 10 mg tablet 10 mg PO TID PRN (Reason: pain) 5 Days Qty: 15 RF: 0 No Action Centrum Silver 0.4-300-250 mg-mcg-mcg Tablet 1 tab PO DAILY RF: 0 naproxen sodium [Aleve] 220 mg Capsule 400 mg PO Q4-6H PRN (Reason: Pain (Scale Score 1-3)) RF: 0 gemfibrozil 600 mg Tablet 600 mg PO BIDAC Qty: 30 RF: 0 Lantus Solostar U-100 Insulin 100 unit/mL (3 mL) Insulin Pen 20 unit subcut BEDTIME Qty: 15 RF: 0 venlafaxine 37.5 mg Tablet 37.5 mg PO BID Qty: 60 RF: 0 lisinopril 10 mg Tablet 10 mg PO DAILY Qty: 30 RF: 0 Fish Oil 340-1,000 mg Capsule 1,000 mg PO DAILY Qty: 30 RF: 0 gabapentin 600 mg Tablet 600 mg PO TID Qty: 90 RF: 0 carbamazepine 200 mg Tablet 300 mg PO BID Qty: 60 RF: 0 pantoprazole 40 mg Tablet,Delayed Release (Dr/Ec) 40 mg PO DAILY Qty: 30 RF: 0 metformin 500 mg tablet 500 mg PO BID Qty: 60 RF: 0 glucose 4 gram tablet,chewable 4 gram PO Q15M PRN (Reason: hypoglycemia) Qty: 10 RF: 0 (DME) blood-glucose meter [Glucocard Expression] Kit See Rx Instructions .ROUTE .MEDSUPPLY Qty: 1 RF: 0 Stand Alone Forms: Work Release Note
[2019-12-15] MEDS: KETOROLAC 60 MG/2 ML VIAL IM (12:31)
== END 2019-12-15 13:27 | disposition home or self-care (01) ==
PROVIDERS: Emergency Provider Nurse Practitioner Family
DX: M25.551 Pain in right hip (principal); R55 Syncope and collapse; E11.9 Type 2 diabetes mellitus without complications
CPT/HCPCS: 73502; 96372; 99283; J1885

== ENCOUNTER → 2020-04-18 09:39 | Outpatient (CLI) | payer OTHER, SELFPAY ==
[2020-03-25 08:53] VITALS: BMI 19.7
[2020-04-19 20:30] LABS: COVID19 Sendout Not Detected (Not Detect)
== END ==
PROVIDERS: Visit Provider Nurse Practitioner
DX: Z11.59 Encounter for screening for other viral diseases (principal)
CPT/HCPCS: 87635

== ENCOUNTER 2020-04-21 11:23 | Day surgery (SDC) | payer OTHER, SELFPAY ==
[2019-08-30 17:28] VITALS: BMI 19.7
[2020-03-25 08:53] VITALS: BMI 19.7
[2020-04-21] VITALS (8 sets, daily range): BP systolic 113–137; BP diastolic 63–73; PULSE 67–75; RESP 8–16; TEMP 35.9–36.9; O2SAT 94–99; BMI 23.7
--- NOTE | 2020-04-21 | PATH_ITS ---
[facility] Accession Number: [id number] . 01 Material submitted: . PART A: small bowel - SM BOWEL PART B: stomach - STOMACH PART C: body - NO SITE DESIGNATED . 01 Clinical history: . C: R/O FRANKLIN'S . 02 Diagnosis: A. Small Bowel: Duodenal mucosa with no diagnostic abnormality. Negative for active inflammation, features of sprue, dysplasia, or malignancy. . B. Stomach: Portions of gastric antral and body-type mucosa with mild chronic inflammation. Negative for Helicobacter organisms by immunohistochemistry. Negative for intestinal metaplasia. Negative for dysplasia and malignancy. . C. No Site Designated; Presumed Biopsy to Rule Out Franklin's Esophagus: Portion of proximal gastric mucosa with intestinal metaplasia by Alcian blue stain, consistent with Franklin's esophagus in the appropriate clinical and imaging setting. Negative for dysplasia or malignancy. . [facility] 04/23/2020 1430 Local . 02 Comment: C. Histologic findings demonstrate portions of columnar mucosa with intestinal metaplasia. There is no squamous component identified in the biopsy. These findings are consistent with Franklin's esophagus, in the appropriate clinical and imaging context. There is no evidence of dysplasai or malignancy. . 02 Electronically signed: . Park Lanier MD, Pathologist NPI- [id number] . 01 Gross description: . Part A: SM BOWEL: Received in formalin are 4 fragment(s) of hirsch, soft tissue measuring 0.1 x 0.1 x 0.1 cm to 0.3 x 0.2 x 0.2 cm submitted entirely in 1 cassette(s) Part B: STOMACH: Received in formalin are 2 fragment(s) of hirsch, soft tissue measuring 0.1 x 0.1 x 0.1 cm to 0.2 x 0.2 x 0.2 cm submitted entirely in 1 cassette(s) Part C: NO SITE DESIGNATED: Received in formalin is 1 fragment(s) of hirsch, soft tissue measuring 0.2 x 0.2 x 0.2 cm submitted entirely in 1 cassette(s) /JULIA 04/22/2020 0156 Local . 02 Microscopic: . B. An immunohistochemical stain was performed to evaluate for Helicobacter organisms and is negative. The control stain showed appropriate reactivity. . * This test was developed and its performance characteristics determined by [facility]. It has not been cleared or approved by the U.S. Food and Drug Administration. The FDA has determined that such clearance or approval is not necessary. This test is used for clinical purposes. It should not be regarded as investigational or for research. . 02 Pathologist provided ICD-10: R10.13, K22.70, K29.70 . 02 CPT . 781196, 150937, 294739, [id number], 157997 Performed at: 01 [facility] [address] [place] [address], [place], [place] [id number] MD Hugo Zambrano MD Phone: [phone] Performed at: 02 [facility] [address] [place], [place] [id number] MD Fide Zimmerman MD Phone: [phone]
--- NOTE | 2020-04-21 12:09 | PM.HP.1 ---
History of Present Illness History of Present Illness Date Patient Seen: 04/21/20 Time Patient Seen: 12:09 Chief complaint: [id number] Narrative: Abdominal pain Patient History Medical History (Updated 12/30/19 @ 00:00 by ) Diabetes mellitus with ketoacidosis (Acute) Surgical History Status post endoscopic retrograde cholangiopancreatography Family & Social History Family History Brother Heart disease Father Heart disease Mother Diabetes mellitus Social History: household members family Tobacco & Substance use: Smoking Status Current every day smoker alcohol intake never alcohol intake frequency 0-2 drinks per day Substance Use Type does not use Meds Home Medications and Allergies Home Medications Medication Instructions Recorded Confirmed Type blood-glucose meter [Glucocard #1 each 09/01/19 Rx Expression] carbamazepine 300 mg PO BID #60 tab 09/01/19 04/21/20 Rx gabapentin 600 mg PO TID #90 tab 09/01/19 04/21/20 Rx insulin glargine [Lantus Solostar 10 unit SUBCUT BEDTIME 04/21/20 04/21/20 History U-100 Insulin] Allergies Allergy/AdvReac Type Severity Reaction Status Date / Time carrot Allergy Severe ANAPHYLAXIS Verified 04/18/20 10:00 Exam Vital Signs (past 8 hours): - 04/21/20 11:37 Temperature 97.5 F L Pulse Rate 75 Respiratory Rate 16 Blood Pressure 137/73 Pulse Oximetry 96 Oxygen Delivery Method Room Air Narrative Exam Narrative: Oropharynx free of lesions Chest clear to auscultation percussion Cardiac exam reveals no S3 or murmur Assessment & Plan Assessment & Plan narrative: Epigastric pain rule out peptic disease. Risks, benefits, alternatives have been explained.
--- NOTE | 2020-04-21 12:10 | PM.OP.ENDO ---
Operative Date/Time/Diagnoses Date of procedure: 04/21/20 Time of procedure: 12:11 Pre-op diagnosis: See indication and findings Procedure & Clinicians Study performed: EGD Same procedure as scheduled: Yes Indications: Epigastric pain Surgeon: Rosalva Rodgers Procedure Notes Procedure in detail: After informed consent was obtained the patient placed in left lateral decubitus position. Video upper scope was placed into the oropharynx and with the patient's help swallowed into the esophagus. The esophagus stomach and duodenum were carefully examined. On withdrawal retroflexed view of the GE junction was performed. The scope was removed. The patient tolerated procedure well. Blood loss none Complications none Sedation Total sedation time 12 minutes Versed 4 mg fentanyl 100 mg IV titration Findings 1. Normal esophagus 2. Small 1 cm tongue extending above the squamocolumnar junction 1 biopsy covered completely to rule out Torres's esophagus 3. Patchy gastric erythema in the antrum biopsies taken rule out Helicobacter 4. Patchy erythema and possible areas of villous atrophy in the duodenum biopsies taken to rule out celiac Will go over biopsies by telephone with Mr. Fernandez. We will have to make decisions as to whether some of this pain is due to these findings or chronic pancreatitis or diabetic autonomic neuropathy.
[2020-04-21] MEDS: MIDAZOLAM 5 MG/5 ML VIAL IV ×4 (12:35→12:40)
[2020-04-21] MEDS: fentaNYL 250 MCG/5 ML INJ IV (12:36)
== END 2020-04-21 14:00 | disposition home or self-care (01) ==
PROVIDERS: Referring Provider Internal Medicine Gastroenterology; Visit Provider Internal Medicine Gastroenterology
PROC: 0DJ08ZZ Inspection of Upper Intestinal Tract, Via Natural or Artificial Opening Endoscopic (ICD-10-PCS; CPT 43235; principal; 2020-04-21 14:00)
DX: K29.50 Unspecified chronic gastritis without bleeding (principal); E11.9 Type 2 diabetes mellitus without complications; J44.9 Chronic obstructive pulmonary disease, unspecified; I10 Essential (primary) hypertension; E78.5 Hyperlipidemia, unspecified
CPT/HCPCS: 43239; J2250; J3010